=== PATIENT | female | born 1990 | race Caucasian/White ===

== ENCOUNTER 2017-09-30 17:51 | Emergency (ER) | payer OTHER, MEDICAID ==
[~2017-09-30] VITALS: Ht 160 cm; Wt 65.9 kg
[2017-09-30] MEDS ORDERED: FAMO20TA44 PO (18:14)
[2017-09-30] MEDS ORDERED: SUCR1ORA2 PO (18:14)
[2017-09-30] MEDS ORDERED: ONDA4TAB9 SL (18:14)
[2017-09-30 18:24] LABS: BASOPHILS % (AUTO) 0.4 % (0-1); EOSINOPHILS # (AUTO) 0.1 X10'3 (0-0.9); EOSINOPHILS % (AUTO) 1.5 % (0-6); HEMOGLOBIN 13.4 g/dl (12.0-16.0); LYMPHOCYTES # (AUTO) 2.5 X10'3 (1.1-4.8); LYMPHOCYTES % (AUTO) 41.1 % (21-51); MEAN CORPUSCULAR HEMOGLOBIN 31.2 PG (27.0-31.0); MEAN CORPUSCULAR HGB CONC 35.2 % (33.0-36.5); MEAN CORPUSCULAR VOLUME 88.7 FL (78-98); MEAN PLATELET VOLUME 6.9 FL (7.4-10.4); MONOCYTES # (AUTO) 0.6 X10'3 (0-0.9); MONOCYTES % (AUTO) 9.5 % (2-12); NEUTROPHILS # (AUTO) 2.9 X10'3 (1.8-7.7); NEUTROPHILS % (AUTO) 47.5 % (42-75); PLATELET COUNT 227 X10'3 (140-440); RED BLOOD COUNT 4.29 X10'6 (4.20-5.60); RED CELL DISTRIBUTION WIDTH 12.9 % (11.5-14.5); WHITE BLOOD COUNT 6.2 X10'3 (4.5-11.0)
[2017-09-30] MEDS ORDERED: ondansetron/PF 4mg/2ml inj IV ONE (18:25)
[2017-09-30] MEDS ORDERED: nitroGLYCERIN 0.4mg SUBLingual tab SL PRN (18:25)
[2017-09-30] MEDS ORDERED: MORPHINE 2MG in 2ml NS syringe IV PRN (18:25)
[2017-09-30 18:36] LABS: PARTIAL THROMBOPLASTIN TIME 28 SECONDS (22-32); PROTHROMBIN TIME 10.2 SECONDS (9.0-12.0)
[2017-09-30 18:44] LABS: ALANINE AMINOTRANSFERASE 25 U/L (12-78); ALBUMIN 3.6 G/DL (3.4-5.0); ALBUMIN/GLOBULIN RATIO 1.1 (1.1-1.5); ALKALINE PHOSPHATASE 66 IU/L (46-116); ANION GAP 10 (8-16); ASPARTATE AMINO TRANSFERASE 12 U/L (10-37); BILIRUBIN,TOTAL 0.3 MG/DL (0.1-1.0); BLOOD UREA NITROGEN 16 MG/DL (7-18); BUN/CREATININE RATIO 19.8 (6.6-38.0); CALCIUM 8.6 MG/DL (8.5-10.1); CHLORIDE 107 MMOL/L (99-107); CREATININE 0.81 MG/DL (0.40-0.90); GLUCOSE 114 MG/DL (70-104); POTASSIUM 3.6 MMOL/L (3.5-5.1); SODIUM 142 MMOL/L (135-145); TOTAL CARBON DIOXIDE 24.8 MMOL/L (24-32); eGFR 84 ML/MIN
[2017-09-30 19:25] LABS: D-DIMER 0.22 MG/L FEU (0-0.50)
[2017-09-30] MEDS ORDERED: LIDOcaine Viscous 15ml cup MM PRN (20:30)
[2017-09-30] MEDS ORDERED: sucralfate 1gm/10ml UD suspension PO ONE (20:30)
[2017-09-30] MEDS ORDERED: mag hydrox/Alum hydrox/simeth 30ml oral suspension PO ONE (20:30)
[2017-09-30 20:52] VITALS: BP 109/70
[2017-09-30] MEDS ORDERED: acetaminophen 325mg tablet PO ONE (21:55)
== END 2017-09-30 22:23 | disposition home or self-care (01) ==
LOC: ER 17:51
DX: R07.9 Chest pain, unspecified (principal); F41.9 Anxiety disorder, unspecified; F32.9 Major depressive disorder, single episode, unspecified; Z91.040 Latex allergy status
CPT/HCPCS: 36415; 71046; 80053; 84484; 85025; 85379; 85610; 85730; 93005; 96374; 96375; 99285; J2274; J2405

== ENCOUNTER 2018-01-30 19:39 | Emergency (ER) | payer MEDICAID, OTHER ==
[~2018-01-30] VITALS: Ht 147.3 cm; Wt 68.2 kg
[2018-01-30 20:43] LABS: CLARITY,URINE CLEAR (Clear); COLOR,URINE YELLOW (Yellow); GLUCOSE, URINE NEGATIVE (Neg); KETONES,URINE NEGATIVE (Neg); LEUKOCYTE ESTERASE ,URINE NEGATIVE (Neg); NITRITES, URINE NEGATIVE (Neg); OCCULT BLOOD,URINE NEGATIVE (Neg); PROTEIN,URINE NEGATIVE (Neg)
[2018-01-30 20:44] LABS: UA COLLECTION TYPE CLN CATCH MIDSTREAM; URINE HCG NEGATIVE (NEG)
[2018-01-30 20:49] LABS: BASOPHILS % (AUTO) 0.3 % (0-1); EOSINOPHILS # (AUTO) 0.1 X10'3 (0-0.9); EOSINOPHILS % (AUTO) 1.1 % (0-6); HEMATOCRIT 38.3 % (35.0-45.0); HEMOGLOBIN 13.2 g/dl (12.0-16.0); LYMPHOCYTES # (AUTO) 2.8 X10'3 (1.1-4.8); LYMPHOCYTES % (AUTO) 36.4 % (21-51); MEAN CORPUSCULAR HEMOGLOBIN 30.6 PG (27.0-31.0); MEAN CORPUSCULAR HGB CONC 34.5 % (33.0-36.5); MEAN CORPUSCULAR VOLUME 88.6 FL (78-98); MEAN PLATELET VOLUME 7.2 FL (7.4-10.4); MONOCYTES # (AUTO) 0.6 X10'3 (0-0.9); MONOCYTES % (AUTO) 7.5 % (2-12); NEUTROPHILS # (AUTO) 4.1 X10'3 (1.8-7.7); NEUTROPHILS % (AUTO) 54.7 % (42-75); PLATELET COUNT 229 X10'3 (140-440); RED BLOOD COUNT 4.32 X10'6 (4.20-5.60); RED CELL DISTRIBUTION WIDTH 12.7 % (11.5-14.5); WHITE BLOOD COUNT 7.6 X10'3 (4.5-11.0)
[2018-01-30 21:00] LABS: PROTHROMBIN TIME 10.6 SECONDS (9.0-12.0)
[2018-01-30 21:05] LABS: ALANINE AMINOTRANSFERASE 28 U/L (12-78); ALBUMIN 3.7 G/DL (3.4-5.0); ALBUMIN/GLOBULIN RATIO 1.1 (1.1-1.5); ALKALINE PHOSPHATASE 71 IU/L (46-116); ANION GAP 9 (8-16); ASPARTATE AMINO TRANSFERASE 11 U/L (10-37); BILIRUBIN,TOTAL 0.3 MG/DL (0.1-1.0); BLOOD UREA NITROGEN 12 MG/DL (7-18); BUN/CREATININE RATIO 12.2 (6.6-38.0); CALCIUM 8.8 MG/DL (8.5-10.1); CHLORIDE 105 MMOL/L (99-107); CREATININE 0.98 MG/DL (0.40-0.90); GLUCOSE 104 MG/DL (70-104); POTASSIUM 3.6 MMOL/L (3.5-5.1); SODIUM 138 MMOL/L (135-145); TOTAL CARBON DIOXIDE 24.2 MMOL/L (24-32); TOTAL PROTEIN 7.1 G/DL (6.4-8.2); eGFR 68 ML/MIN
[2018-01-30] MEDS ORDERED: fluconazole 150mg tablet PO ONE (21:25)
[2018-01-30] MEDS ORDERED: FLUC200T PO (21:56)
[2018-01-30 22:33] VITALS: BP 133/84
== END 2018-01-30 22:36 | disposition home or self-care (01) ==
LOC: ER 19:42
DX: N89.8 Other specified noninflammatory disorders of vagina (principal); R10.30 Lower abdominal pain, unspecified; Z88.8 Allergy status to other drugs, medicaments and biological substances; Z91.040 Latex allergy status
CPT/HCPCS: 36415; 80053; 81003; 81025; 85025; 85610; 87210; 99284

== ENCOUNTER 2018-08-07 14:16 | Emergency (ER) | payer OTHER, MEDICAID ==
[~2018-08-07] VITALS: Ht 147.3 cm; Wt 80.4 kg
[~2018-08-07 14:16] MED LIST: FLUC200T PO
[2018-08-07 14:33] VITALS: BP 108/71
[2018-08-07] MEDS ORDERED: ketorolac trometh. 30mg/ml inj. IM ONE (15:05)
[2018-08-07] MEDS ORDERED: cyclobenzaprine 10mg tablet PO ONE (15:05)
[2018-08-07] MEDS ORDERED: CYCL-1 PO (15:34)
== END 2018-08-07 15:56 | disposition home or self-care (01) ==
LOC: ER 14:17
DX: S16.1XXA Strain of muscle, fascia and tendon at neck level, initial encounter (principal); M54.6 Pain in thoracic spine; Z88.8 Allergy status to other drugs, medicaments and biological substances; Z91.040 Latex allergy status; Z79.899 Other long term (current) drug therapy; V43.62XA Car passenger injured in collision with other type car in traffic accident, initial encounter; Y93.89 Activity, other specified; Y92.488 Other paved roadways as the place of occurrence of the external cause; Y99.8 Other external cause status
CPT/HCPCS: 72040; 96372; 99283; J1885

== ENCOUNTER 2018-08-15 15:45 | Emergency (ER) | payer OTHER, MEDICAID ==
[~2018-08-15] VITALS: Ht 147.3 cm; Wt 70.0 kg
[~2018-08-15 15:45] MED LIST changes: +CYCL-1 PO
[2018-08-15 15:58] VITALS: BP 122/71
[2018-08-15] MEDS ORDERED: LIDOcaine 5% patch TP STA (17:39)
== END 2018-08-15 17:57 | disposition home or self-care (01) ==
LOC: ER 15:46
DX: S16.1XXA Strain of muscle, fascia and tendon at neck level, initial encounter (principal); Z88.8 Allergy status to other drugs, medicaments and biological substances; Z91.040 Latex allergy status; X58.XXXA Exposure to other specified factors, initial encounter; Y93.89 Activity, other specified; Y92.89 Other specified places as the place of occurrence of the external cause; Y99.8 Other external cause status
CPT/HCPCS: 99282

== ENCOUNTER 2018-09-06 13:03 | Emergency (ER) | payer MEDICAID, OTHER ==
[~2018-09-06] VITALS: Ht 147.3 cm; Wt 70.5 kg
[2018-09-06 13:10] VITALS: BP 114/82
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
== END 2018-09-06 14:31 | disposition home or self-care (01) ==
LOC: ER 13:04
DX: S16.1XXA Strain of muscle, fascia and tendon at neck level, initial encounter (principal); M25.511 Pain in right shoulder; M54.9 Dorsalgia, unspecified; Z88.8 Allergy status to other drugs, medicaments and biological substances; Z91.040 Latex allergy status; V89.2XXA Person injured in unspecified motor-vehicle accident, traffic, initial encounter; Y93.89 Activity, other specified; Y92.488 Other paved roadways as the place of occurrence of the external cause; Y99.8 Other external cause status
CPT/HCPCS: 73000; 99283

== ENCOUNTER 2018-12-29 01:28 | Emergency (ER) | payer MEDICAID ==
[~2018-12-29] VITALS: Ht 147.3 cm; Wt 72.7 kg
[2018-12-29] MEDS ORDERED: HYDROcodone/acetaminophen 10/325mg tab PO ONE (02:55)
[2018-12-29] MEDS ORDERED: triamcinolone acetonide 40mg/ml inj IM ONE (02:55)
[2018-12-29] MEDS ORDERED: ketorolac trometh inj. 60 MG/2 ML VIAL IM ONE (02:55)
[2018-12-29] MEDS ORDERED: cyclobenzaprine 10mg tablet PO ONE (02:55)
[2018-12-29 03:05] VITALS: BP 100/48
[2018-12-29] MEDS ORDERED: CYCL-1 PO (03:25)
[2018-12-29] MEDS ORDERED: NAPR-56 PO (03:25)
[2018-12-29] MEDS ORDERED: HYDR-4383 PO (03:25)
== END 2018-12-29 03:33 | disposition home or self-care (01) ==
LOC: ER 01:28
DX: M54.5 Low back pain (principal); G89.29 Other chronic pain; F41.9 Anxiety disorder, unspecified; F32.9 Major depressive disorder, single episode, unspecified; F10.99 Alcohol use, unspecified with unspecified alcohol-induced disorder; Z88.8 Allergy status to other drugs, medicaments and biological substances; Z91.040 Latex allergy status; Z79.899 Other long term (current) drug therapy; Y90.9 Presence of alcohol in blood, level not specified
CPT/HCPCS: 96372; 99283; J1885; J3301

== ENCOUNTER 2019-01-03 14:26 | Emergency (ER) | payer MEDICAID ==
[~2019-01-03] VITALS: Ht 147.3 cm; Wt 75.0 kg
[~2019-01-03 14:26] MED LIST changes: +HYDR-4383 PO; +NAPR-56 PO
[2019-01-03] MEDS ORDERED: CELE-193 PO (14:51)
[2019-01-03] MEDS ORDERED: LIDOcaine 5% patch TP ONE (15:30)
[2019-01-03] MEDS ORDERED: LIDO700A32 TOP (15:30)
[2019-01-03 15:31] VITALS: BP 107/63
== END 2019-01-03 15:56 | disposition home or self-care (01) ==
LOC: ER 14:27
DX: S39.012A Strain of muscle, fascia and tendon of lower back, initial encounter (principal); M54.31 Sciatica, right side; G89.29 Other chronic pain; F32.9 Major depressive disorder, single episode, unspecified; F41.9 Anxiety disorder, unspecified; Z79.899 Other long term (current) drug therapy; Z88.8 Allergy status to other drugs, medicaments and biological substances; Z91.040 Latex allergy status; X58.XXXA Exposure to other specified factors, initial encounter; Y93.39 Activity, other involving climbing, rappelling and jumping off; Y92.89 Other specified places as the place of occurrence of the external cause; Y99.8 Other external cause status
CPT/HCPCS: 99284

== ENCOUNTER 2019-04-24 10:26 | Emergency (ER) | payer MEDICAID ==
[~2019-04-24] VITALS: Ht 147.3 cm; Wt 79.0 kg
[~2019-04-24 10:26] MED LIST changes: +CELE-193 PO; -FLUC200T PO; +LIDO700A32 TOP; -NAPR-56 PO
--- NOTE | 2019-04-24 11:03 | NUR ---
severo: [phone]
[2019-04-24 11:55] VITALS: BP 121/83
[2019-04-24] MEDS ORDERED: dexamethasone sod phosphate 10mg/ml inj PO STA (12:06)
[2019-04-24] MEDS ORDERED: ipratropium/albuterol 3ml nebule NEB ONE (12:10)
[2019-04-24] MEDS ORDERED: ALBU8.5H8 IH (13:04)
[2019-04-24] MEDS ORDERED: BENZ-16 PO (13:04)
== END 2019-04-24 13:28 | disposition home or self-care (01) ==
LOC: ER 10:27
DX: J02.9 Acute pharyngitis, unspecified (principal); M54.5 Low back pain; G89.29 Other chronic pain; R06.02 Shortness of breath; Z88.8 Allergy status to other drugs, medicaments and biological substances; Z91.040 Latex allergy status; Z79.899 Other long term (current) drug therapy
CPT/HCPCS: 71046; 94640; 94760; 99283; J1100

== ENCOUNTER 2019-08-25 06:44 | Emergency (ER) | payer MEDICAID ==
[~2019-08-25] VITALS: Ht 147.3 cm; Wt 77.3 kg
[~2019-08-25 06:44] MED LIST changes: +ALBU8.5H8 IH
[2019-08-25] MEDS ORDERED: normal saline 1000ML IV soln IVB ONE (07:20)
[2019-08-25] MEDS ORDERED: ondansetron/PF 4mg/2ml inj IV ONE (07:20)
[2019-08-25] MEDS ORDERED: morphine 4 MG/ML inj SYRINge IV PRN (07:20)
[2019-08-25] MEDS ORDERED: ketorolac tromethamine 15mg/ml inj. IV ONE (07:20)
[2019-08-25 07:47] LABS: BASOPHILS % (AUTO) 0.2 % (0-1); EOSINOPHILS # (AUTO) 0.1 X10'3 (0-0.9); EOSINOPHILS % (AUTO) 1.7 % (0-6); HEMATOCRIT 39.4 % (35.0-45.0); HEMOGLOBIN 13.5 g/dl (12.0-16.0); LYMPHOCYTES % (AUTO) 37.7 % (21-51); MEAN CORPUSCULAR HEMOGLOBIN 30.5 PG (27.0-31.0); MEAN CORPUSCULAR HGB CONC 34.3 g/dL (33.0-36.5); MEAN PLATELET VOLUME 6.9 FL (7.4-10.4); MONOCYTES # (AUTO) 0.8 X10'3 (0-0.9); MONOCYTES % (AUTO) 10.6 % (2-12); NEUTROPHILS # (AUTO) 3.9 X10'3 (1.8-7.7); NEUTROPHILS % (AUTO) 49.8 % (42-75); PLATELET COUNT 231 X10'3 (140-440); RED BLOOD COUNT 4.42 X10'6 (4.20-5.60); RED CELL DISTRIBUTION WIDTH 13.1 % (11.5-14.5); WHITE BLOOD COUNT 7.9 X10'3 (4.5-11.0)
[2019-08-25 07:47] LABS: CLARITY,URINE CLEAR (Clear); COLOR,URINE YELLOW (Yellow); GLUCOSE, URINE NEGATIVE (Neg); KETONES,URINE NEGATIVE (Neg); LEUKOCYTE ESTERASE ,URINE NEGATIVE (Neg); NITRITES, URINE NEGATIVE (Neg); OCCULT BLOOD,URINE NEGATIVE (Neg); PH,URINE 6.5 (4.8-8.0); PROTEIN,URINE NEGATIVE (Neg); UROBILINOGEN,URINE 0.2 E.U/dL (0.2-1.0)
[2019-08-25 07:49] LABS: HCG SERUM QL NEGATIVE
[2019-08-25 07:51] LABS: UA COLLECTION TYPE STRAIGHT CATH
[2019-08-25 07:53] LABS: ALANINE AMINOTRANSFERASE 25 U/L (12-78); ALBUMIN 3.3 G/DL (3.4-5.0); ALKALINE PHOSPHATASE 63 IU/L (46-116); ANION GAP 9 (8-16); ASPARTATE AMINO TRANSFERASE 17 U/L (10-37); BILIRUBIN,TOTAL 0.4 MG/DL (0.1-1.0); BLOOD UREA NITROGEN 10 MG/DL (7-18); BUN/CREATININE RATIO 12.5 (6.6-38.0); CALCIUM 8.2 MG/DL (8.5-10.1); CHLORIDE 109 MMOL/L (99-107); GLUCOSE 91 MG/DL (70-104); LIPASE 134 U/L (73-393); POTASSIUM 3.7 MMOL/L (3.5-5.1); SODIUM 143 MMOL/L (135-145); TOTAL PROTEIN 6.7 G/DL (6.4-8.2); eGFR 84 ML/MIN
[2019-08-25] MEDS ORDERED: HYDROcodone/acetaminophen 10/325mg tab PO ONE (08:10)
[2019-08-25] MEDS ORDERED: HYDR-4353 PO (08:14)
[2019-08-25] MEDS ORDERED: ONDA4TAB6 PO (08:19)
[2019-08-25 08:29] VITALS: BP 119/68
== END 2019-08-25 08:36 | disposition home or self-care (01) ==
LOC: ER 06:45
DX: N83.201 Unspecified ovarian cyst, right side (principal); G89.29 Other chronic pain; Z90.49 Acquired absence of other specified parts of digestive tract; Z88.8 Allergy status to other drugs, medicaments and biological substances; Z91.040 Latex allergy status; Z79.899 Other long term (current) drug therapy
CPT/HCPCS: 36415; 76830; 76856; 80053; 81003; 83690; 84703; 85025; 96374; 96375; 99285; J1885; J2405; J7030

== ENCOUNTER 2019-08-27 21:11 | Emergency (ER) | payer MEDICAID ==
[~2019-08-27] VITALS: Ht 147.3 cm; Wt 80.5 kg
[~2019-08-27 21:11] MED LIST changes: +HYDR-4353 PO; +ONDA4TAB6 PO
[2019-08-27] MEDS ORDERED: ondansetron/PF 4mg/2ml inj IV ONE (21:40)
[2019-08-27] MEDS ORDERED: normal saline 1000ML IV soln IVB ONE (21:40)
[2019-08-27] MEDS ORDERED: ketorolac trometh. 30mg/ml inj. IV ONE (21:40)
[2019-08-27 22:09] LABS: BASOPHILS # (AUTO) 0.1 X10'3 (0-0.2); EOSINOPHILS # (AUTO) 0.1 X10'3 (0-0.9); EOSINOPHILS % (AUTO) 1.5 % (0-6); HEMATOCRIT 41.5 % (35.0-45.0); HEMOGLOBIN 14.4 g/dl (12.0-16.0); LYMPHOCYTES # (AUTO) 2.4 X10'3 (1.1-4.8); LYMPHOCYTES % (AUTO) 34.6 % (21-51); MEAN CORPUSCULAR HGB CONC 34.8 g/dL (33.0-36.5); MEAN CORPUSCULAR VOLUME 88.9 FL (78-98); MEAN PLATELET VOLUME 6.7 FL (7.4-10.4); MONOCYTES # (AUTO) 0.8 X10'3 (0-0.9); NEUTROPHILS # (AUTO) 3.6 X10'3 (1.8-7.7); NEUTROPHILS % (AUTO) 51.9 % (42-75); PLATELET COUNT 270 X10'3 (140-440); RED BLOOD COUNT 4.66 X10'6 (4.20-5.60); RED CELL DISTRIBUTION WIDTH 12.8 % (11.5-14.5)
[2019-08-27 22:12] LABS: URINE HCG NEGATIVE (NEG)
[2019-08-27 22:14] LABS: CLARITY,URINE CLEAR (Clear); COLOR,URINE YELLOW (Yellow); GLUCOSE, URINE NEGATIVE (Neg); KETONES,URINE NEGATIVE (Neg); LEUKOCYTE ESTERASE ,URINE NEGATIVE (Neg); NITRITES, URINE NEGATIVE (Neg); OCCULT BLOOD,URINE NEGATIVE (Neg); PROTEIN,URINE NEGATIVE (Neg); UROBILINOGEN,URINE 0.2 E.U/dL (0.2-1.0)
[2019-08-27 22:19] LABS: UA COLLECTION TYPE CLN CATCH MIDSTREAM
[2019-08-27 22:23] LABS: ALANINE AMINOTRANSFERASE 45 U/L (12-78); ALBUMIN 4.1 G/DL (3.4-5.0); ALBUMIN/GLOBULIN RATIO 1.1 (1.1-1.5); ALKALINE PHOSPHATASE 75 IU/L (46-116); ANION GAP 9 (8-16); ASPARTATE AMINO TRANSFERASE 25 U/L (10-37); BILIRUBIN,TOTAL 0.3 MG/DL (0.1-1.0); BLOOD UREA NITROGEN 11 MG/DL (7-18); BUN/CREATININE RATIO 14.5 (6.6-38.0); CHLORIDE 104 MMOL/L (99-107); CREATININE 0.76 MG/DL (0.40-0.90); GLUCOSE 87 MG/DL (70-104); POTASSIUM 3.4 MMOL/L (3.5-5.1); SODIUM 142 MMOL/L (135-145); TOTAL CARBON DIOXIDE 28.8 MMOL/L (24-32); eGFR 89 ML/MIN
[2019-08-27] MEDS ORDERED: oxyCODONE/APAP 10/325mg tablet PO ONE (22:25)
[2019-08-27] MEDS ORDERED: PROC-8 PO (23:18)
[2019-08-27] MEDS ORDERED: NAPR-56 PO (23:18)
[2019-08-27 23:20] VITALS: BP 117/81
--- NOTE | 2019-08-27 23:23 | NUR ---
LU SUN TALKING WITH PT ABOUT DISCHARGE.
== END 2019-08-27 23:26 | disposition home or self-care (01) ==
LOC: ER 21:11
DX: R11.2 Nausea with vomiting, unspecified (principal); R10.11 Right upper quadrant pain; R10.2 Pelvic and perineal pain; G89.29 Other chronic pain; F41.9 Anxiety disorder, unspecified; F32.9 Major depressive disorder, single episode, unspecified; Z90.49 Acquired absence of other specified parts of digestive tract; Z91.040 Latex allergy status; Z88.8 Allergy status to other drugs, medicaments and biological substances; Z79.2 Long term (current) use of antibiotics; Z79.899 Other long term (current) drug therapy
CPT/HCPCS: 36415; 74176; 80053; 81003; 81025; 85025; 96361; 96374; 99284; J2405; J7030

== ENCOUNTER 2019-10-26 03:56 | Inpatient (IN) | payer MEDICAID ==
[~2019-10-26] VITALS: Ht 147.3 cm; Wt 77.3 kg
[2019-10-26] VITALS (9 sets, daily range): BP systolic 97–119; BP diastolic 57–75
[~2019-10-26 03:56] MED LIST changes: -HYDR-4353 PO; +PROC-8 PO
[2019-10-26] MEDS ORDERED: normal saline 1000ML IV soln IVB ONE ×2 (04:30)
[2019-10-26] MEDS ORDERED: pantoprazole 40 MG vial IV ONE (04:30)
[2019-10-26] MEDS ORDERED: ondansetron/PF 4mg/2ml inj IV ONE (04:30)
[2019-10-26] MEDS ORDERED: LORazepam 2 mg/ml vial IV ONE (04:30)
[2019-10-26 04:50] LABS: ALANINE AMINOTRANSFERASE 30 U/L (12-78); ALBUMIN 4.1 G/DL (3.4-5.0); ALBUMIN/GLOBULIN RATIO 1.1 (1.1-1.5); ALKALINE PHOSPHATASE 79 IU/L (46-116); BILIRUBIN,TOTAL 0.4 MG/DL (0.1-1.0); CALCIUM 9.1 MG/DL (8.5-10.1); CHLORIDE 103 MMOL/L (99-107); GLUCOSE 80 MG/DL (70-104); LIPASE 156 U/L (73-393); TOTAL CARBON DIOXIDE 26.7 MMOL/L (24-32); eGFR 65 ML/MIN
[2019-10-26 05:03] LABS: EOSINOPHILS # (AUTO) 0.1 X10'3 (0-0.9); RED CELL DISTRIBUTION WIDTH 12.8 % (11.5-14.5)
[2019-10-26 05:04] LABS: ANION GAP 13 (8-16); POTASSIUM 4.1 MMOL/L (3.5-5.1); SODIUM 143 MMOL/L (135-145)
[2019-10-26 05:05] LABS: BASOPHILS % (AUTO) 0.1 % (0-1); EOSINOPHILS % (AUTO) 0.7 % (0-6); HEMATOCRIT 43.1 % (35.0-45.0); HEMOGLOBIN 14.5 g/dl (12.0-16.0); LYMPHOCYTES # (AUTO) 3.8 X10'3 (1.1-4.8); LYMPHOCYTES % (AUTO) 28.3 % (21-51); MEAN CORPUSCULAR HEMOGLOBIN 30.4 PG (27.0-31.0); MEAN CORPUSCULAR HGB CONC 33.6 g/dL (33.0-36.5); MEAN CORPUSCULAR VOLUME 90.3 FL (78-98); MEAN PLATELET VOLUME 7.3 FL (7.4-10.4); MONOCYTES # (AUTO) 1.1 X10'3 (0-0.9); MONOCYTES % (AUTO) 8.2 % (2-12); NEUTROPHILS # (AUTO) 8.5 X10'3 (1.8-7.7); NEUTROPHILS % (AUTO) 62.7 % (42-75); PLATELET COUNT 283 X10'3 (140-440); RED BLOOD COUNT 4.77 X10'6 (4.20-5.60); WHITE BLOOD COUNT 13.5 X10'3 (4.5-11.0)
[2019-10-26 05:07] LABS: ASPARTATE AMINO TRANSFERASE 19 U/L (10-37)
[2019-10-26 05:14] LABS: BLOOD UREA NITROGEN 17 MG/DL (7-18)
[2019-10-26 05:49] LABS: CLARITY,URINE CLEAR (Clear); COLOR,URINE YELLOW (Yellow); GLUCOSE, URINE NEGATIVE (Neg); KETONES,URINE NEGATIVE (Neg); LEUKOCYTE ESTERASE ,URINE NEGATIVE (Neg); NITRITES, URINE NEGATIVE (Neg); OCCULT BLOOD,URINE NEGATIVE (Neg); PROTEIN,URINE NEGATIVE (Neg); UROBILINOGEN,URINE 0.2 E.U/dL (0.2-1.0)
[2019-10-26 05:50] LABS: UA COLLECTION TYPE CLN CATCH MIDSTREAM
[2019-10-26 06:49] LABS: URINE HCG NEGATIVE (NEG)
[2019-10-26] MEDS ORDERED: iohexol 300mg/ml 100ml inj. ONE (07:09)
[2019-10-26] MEDS ORDERED: fentaNYL/PF 50MCG/1 ML 2ML syringe IV ONE (08:30)
[2019-10-26] MEDS ORDERED: morphine 2 MG/ML inj. syringe IV PRN ×2 (08:40→11:55)
[2019-10-26] MEDS ORDERED: magnesium hydroxide 30ml (MOM) UD suspension PO PRN (08:40)
[2019-10-26] MEDS ORDERED: acetaminophen 325mg tablet PO PRN ×2 (08:40)
[2019-10-26] MEDS ORDERED: metoclopramide 5 mg/ml inj IV PRN (08:40)
[2019-10-26] MEDS ORDERED: HYDROcodone/acetaminophen 10/325mg tab PO PRN (08:40)
[2019-10-26] MEDS: normal saline 1000ml 1,000 ML IV SCH ×2 (09:20→21:40)
[2019-10-26] MEDS ORDERED: ringers solution, lacted 1,000 ML IV SCH (11:52)
[2019-10-26] MEDS ORDERED: meperidine/PF 25mg/ml syringe IV PRN ×2 (11:55)
[2019-10-26] MEDS ORDERED: proCHLORperazine 10 MG/2 ml inj IV PRN (11:55)
[2019-10-26] MEDS ORDERED: morphine 4 MG/ML inj SYRINge IV PRN (11:55)
[2019-10-26] MEDS ORDERED: ondansetron/PF 4mg/2ml inj IV PRN (11:55)
[2019-10-26] MEDS ORDERED: midazolam 2 mg/2 ml injection ONE (12:02)
[2019-10-26] MEDS ORDERED: fentaNYL /PF 50mcg/ml 5ml ampule ONE (12:02)
[2019-10-26] MEDS ORDERED: neostigmine methylsulfate 1 MG/ML 10ml vial ONE (12:06)
[2019-10-26] MEDS ORDERED: rocuronium 10mg/ml inj IV ONE (12:06)
[2019-10-26] MEDS ORDERED: dexamethasone sod phosphate 4mg/ml inj. ONE (12:06)
[2019-10-26] MEDS ORDERED: propofol inj 20 ML IV ONE (12:06)
[2019-10-26] MEDS ORDERED: LIDOcaine 2% (20mg/ml) 5ml vial ONE (12:06)
[2019-10-26] MEDS ORDERED: glycopyrrolate 0.2mg/ml inj ONE (12:06)
[2019-10-26] MEDS ORDERED: ondansetron/PF 4mg/2ml inj ONE (12:06)
[2019-10-26] MEDS ORDERED: sevoflurane 250ml liquid IH ONE (12:11)
[2019-10-26] MEDS ORDERED: ceFOXitin 2 GM ADDVANTGE BAG 50 ML IV ONE (12:28)
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
[2019-10-26] MEDS: meperidine/PF 25mg/ml syringe IV PRN ×3 (14:28→14:34)
--- NOTE | 2019-10-26 14:45 | NUR ---
Report called to receiving nurse. Transferred via SURGICL BED TO ROOM 357B Belongings . Special Issues communicated to receiving nurse.
--- NOTE | 2019-10-26 14:45 | NUR ---
Patient in room [facility]. I have received report from Lora ALEXANDER in recovery and had the opportunity to ask questions and assume patient care. Pt was very sedated at arrival, checking her q15min.
[2019-10-26] MEDS ORDERED: NO HOME MEDS (16:56)
[2019-10-26] MEDS: morphine 2 MG/ML inj. syringe IV PRN ×2 (17:22→21:38)
--- NOTE | 2019-10-26 17:56 | NUR ---
no home meds - Valentina in pharmacy aware. Addendum: 10/26/19 at 4247 by Mary Cornejo RN Amended: Links added.
--- NOTE | 2019-10-26 18:27 | NUR ---
Problems reprioritized. Patient report given, questions answered & plan of care reviewed with Pat RN.
--- NOTE | 2019-10-26 19:45 | NUR ---
cedric babcock placed by CATHERINE Peraza Addendum: 10/27/19 at 0349 by Michelle Isabel RN Amended: Links added.
[2019-10-26] MEDS: calamine LOTION TP PRN (22:39)
[2019-10-27] VITALS: BP 119/75
[2019-10-27] MEDS: morphine 2 MG/ML inj. syringe IV PRN ×4 (02:39→21:12)
[2019-10-27 03:50] VITALS: BP 112/66
[2019-10-27 05:46] LABS: BASOPHILS % (AUTO) 0.1 % (0-1); EOSINOPHILS % (AUTO) 0 % (0-6); HEMATOCRIT 39.4 % (35.0-45.0); HEMOGLOBIN 13.1 g/dl (12.0-16.0); LYMPHOCYTES % (AUTO) 6.5 % (21-51); MEAN CORPUSCULAR HEMOGLOBIN 30.1 PG (27.0-31.0); MEAN CORPUSCULAR HGB CONC 33.4 g/dL (33.0-36.5); MEAN CORPUSCULAR VOLUME 90.1 FL (78-98); MONOCYTES % (AUTO) 6.9 % (2-12); NEUTROPHILS # (AUTO) 12.9 X10'3 (1.8-7.7); NEUTROPHILS % (AUTO) 86.5 % (42-75); PLATELET COUNT 238 X10'3 (140-440); RED BLOOD COUNT 4.37 X10'6 (4.20-5.60); RED CELL DISTRIBUTION WIDTH 12.6 % (11.5-14.5); WHITE BLOOD COUNT 14.9 X10'3 (4.5-11.0)
[2019-10-27 05:56] LABS: ANION GAP 7 (8-16); BLOOD UREA NITROGEN 10 MG/DL (7-18); BUN/CREATININE RATIO 11.5 (6.6-38.0); CALCIUM 8.4 MG/DL (8.5-10.1); CHLORIDE 106 MMOL/L (99-107); CREATININE 0.87 MG/DL (0.40-0.90); GLUCOSE 128 MG/DL (70-104); SODIUM 140 MMOL/L (135-145); TOTAL CARBON DIOXIDE 27.3 MMOL/L (24-32); eGFR 76 ML/MIN
--- NOTE | 2019-10-27 06:50 | NUR ---
Patient in room [facility] 357. I have received report from Pat RN and had the opportunity to ask questions and assume patient care.
[2019-10-27 07:00] VITALS: BP 110/65
[2019-10-27] MEDS: normal saline 1000ml 1,000 ML IV SCH ×2 (07:58→19:49)
[2019-10-27] MEDS: calamine LOTION TP PRN (08:09)
[2019-10-27 11:00] VITALS: BP 107/68
--- NOTE | 2019-10-27 18:15 | NUR ---
Patient in room [facility] 357. I have received report from Gisselle ALEXANDER and had the opportunity to ask questions and assume patient care.
--- NOTE | 2019-10-27 18:36 | NUR ---
Problems reprioritized. Patient report given, questions answered & plan of care reviewed with Evelyn ALEXANDER.
[2019-10-27 20:00] VITALS: BP 124/75
[2019-10-27] MEDS: ondansetron/PF 4mg/2ml inj IV PRN (23:16)
[2019-10-28] VITALS: BP 118/77
[2019-10-28] MEDS: normal saline 1000ml 1,000 ML IV SCH ×3 (00:37→17:10)
[2019-10-28] MEDS: morphine 2 MG/ML inj. syringe IV PRN ×2 (04:38→20:49)
[2019-10-28 05:09] LABS: BASOPHILS % (AUTO) 0.2 % (0-1); EOSINOPHILS # (AUTO) 0.1 X10'3 (0-0.9); HEMATOCRIT 38.7 % (35.0-45.0); HEMOGLOBIN 13.2 g/dl (12.0-16.0); LYMPHOCYTES # (AUTO) 3.4 X10'3 (1.1-4.8); LYMPHOCYTES % (AUTO) 27.4 % (21-51); MEAN CORPUSCULAR HEMOGLOBIN 30.5 PG (27.0-31.0); MEAN CORPUSCULAR VOLUME 89.8 FL (78-98); MEAN PLATELET VOLUME 6.9 FL (7.4-10.4); MONOCYTES # (AUTO) 1.3 X10'3 (0-0.9); MONOCYTES % (AUTO) 10.6 % (2-12); NEUTROPHILS # (AUTO) 7.6 X10'3 (1.8-7.7); NEUTROPHILS % (AUTO) 60.8 % (42-75); PLATELET COUNT 258 X10'3 (140-440); RED BLOOD COUNT 4.31 X10'6 (4.20-5.60); RED CELL DISTRIBUTION WIDTH 12.9 % (11.5-14.5); WHITE BLOOD COUNT 12.5 X10'3 (4.5-11.0)
[2019-10-28 05:21] LABS: ALBUMIN 3.2 G/DL (3.4-5.0); ANION GAP 10 (8-16); BLOOD UREA NITROGEN 8 MG/DL (7-18); CALCIUM 8.4 MG/DL (8.5-10.1); CHLORIDE 106 MMOL/L (99-107); CREATININE 0.89 MG/DL (0.40-0.90); GLUCOSE 85 MG/DL (70-104); POTASSIUM 3.7 MMOL/L (3.5-5.1); SODIUM 140 MMOL/L (135-145); eGFR 74 ML/MIN
--- NOTE | 2019-10-28 06:24 | NUR ---
Problems reprioritized. Patient report given, questions answered & plan of care reviewed with Sudha ALEXANDER.
[2019-10-28 07:00] VITALS: BP 113/69
--- NOTE | 2019-10-28 09:28 | NUR ---
Spoke to MD Espana regarding diet, PT, and F/C. wants F/c to be left in until tomorrow per protocol- retention.
[2019-10-28] MEDS: HYDROcodone/acetaminophen 5mg/325mg tablet PO PRN (11:34)
[2019-10-28 12:10] VITALS: BP 113/76
[2019-10-28] MEDS: ondansetron/PF 4mg/2ml inj IV PRN (13:26)
--- NOTE | 2019-10-28 13:39 | NUR ---
Patient refused a walk at this time due to "just not feeling good". Will attempt in a couple hours.
--- NOTE | 2019-10-28 14:32 | NUR ---
Pt. refused to walk stating "I just walked."
--- NOTE | 2019-10-28 14:37 | NUR ---
Pt. states history of Tourette's syndrome- therefore the eye twitch.
--- NOTE | 2019-10-28 18:00 | NUR ---
Patient in room [facility]. I have received report from Sudha ALEXANDER and had the opportunity to ask questions and assume patient care.
--- NOTE | 2019-10-28 18:12 | NUR ---
Gave report to Evelyn ALEXANDER. Pt. in room comfortable at this time.
[2019-10-28 20:00] VITALS: BP 119/79
[2019-10-28] MEDS: mag hydrox/Alum hydrox/simeth 30ml oral suspension PO PRN (22:43)
[2019-10-29] VITALS: BP 107/78
[2019-10-29] MEDS: normal saline 1000ml 1,000 ML IV SCH ×2 (03:39→13:50)
[2019-10-29] MEDS: morphine 2 MG/ML inj. syringe IV PRN (05:37)
--- NOTE | 2019-10-29 06:00 | NUR ---
Patient in room [facility]. I have received report from CATHERINE Rivas and had the opportunity to ask questions and assume patient care.
--- NOTE | 2019-10-29 06:06 | NUR ---
Problems reprioritized. Patient report given, questions answered & plan of care reviewed with Ashwini ALEXANDER.
[2019-10-29 06:59] LABS: BASOPHILS % (AUTO) 0.3 % (0-1); EOSINOPHILS # (AUTO) 0.2 X10'3 (0-0.9); HEMATOCRIT 36.6 % (35.0-45.0); HEMOGLOBIN 12.4 g/dl (12.0-16.0); LYMPHOCYTES # (AUTO) 1.9 X10'3 (1.1-4.8); LYMPHOCYTES % (AUTO) 24.6 % (21-51); MEAN CORPUSCULAR HEMOGLOBIN 30.7 PG (27.0-31.0); MEAN CORPUSCULAR HGB CONC 33.9 g/dL (33.0-36.5); MEAN CORPUSCULAR VOLUME 90.5 FL (78-98); MEAN PLATELET VOLUME 6.6 FL (7.4-10.4); MONOCYTES # (AUTO) 0.8 X10'3 (0-0.9); MONOCYTES % (AUTO) 9.8 % (2-12); NEUTROPHILS # (AUTO) 4.9 X10'3 (1.8-7.7); NEUTROPHILS % (AUTO) 62.3 % (42-75); PLATELET COUNT 204 X10'3 (140-440); RED BLOOD COUNT 4.04 X10'6 (4.20-5.60); RED CELL DISTRIBUTION WIDTH 12.8 % (11.5-14.5); WHITE BLOOD COUNT 7.9 X10'3 (4.5-11.0)
[2019-10-29 07:28] LABS: ALANINE AMINOTRANSFERASE 17 U/L (12-78); ALBUMIN 2.8 G/DL (3.4-5.0); ALBUMIN/GLOBULIN RATIO 0.8 (1.1-1.5); ALKALINE PHOSPHATASE 58 IU/L (46-116); ANION GAP 12 (8-16); ASPARTATE AMINO TRANSFERASE 13 U/L (10-37); BILIRUBIN,TOTAL 0.6 MG/DL (0.1-1.0); BLOOD UREA NITROGEN 10 MG/DL (7-18); BUN/CREATININE RATIO 13.3 (6.6-38.0); CHLORIDE 107 MMOL/L (99-107); CREATININE 0.75 MG/DL (0.40-0.90); GLUCOSE 69 MG/DL (70-104); PHOSPHORUS 3.9 MG/DL (2.3-4.5); POTASSIUM 3.7 MMOL/L (3.5-5.1); SODIUM 141 MMOL/L (135-145); TOTAL CARBON DIOXIDE 22.1 MMOL/L (24-32); TOTAL PROTEIN 6.3 G/DL (6.4-8.2); eGFR > 90 ML/MIN
[2019-10-29 08:00] VITALS: BP 120/76
[2019-10-29 11:00] VITALS: BP 116/71
[2019-10-29] MEDS: HYDROcodone/acetaminophen 5mg/325mg tablet PO PRN ×2 (13:49→20:35)
--- NOTE | 2019-10-29 14:29 | NUR ---
Patients BS 64 with no glucose ordered, and pt is NPO. Dr. Duke paged with no response. Dr. Espana called and he stated that its okay to give patient 2 juices for hypoglycemia and to keep pt NPO after.
--- NOTE | 2019-10-29 17:28 | NUR ---
Pages sent to hospitalist to request Accuchecks and Hypoglycemic protocol, prn per RN, and return calls pending. Dr. Smith was notified and orders received.
--- NOTE | 2019-10-29 18:00 | NUR ---
Problems reprioritized. Patient report given, questions answered & plan of care reviewed with CATHERINE Harris.
--- NOTE | 2019-10-29 18:30 | NUR ---
Patient in room [facility]. I have received report from CATHERINE Maradiaga and had the opportunity to ask questions and assume patient care with CATHERINE Robles. Addendum: 10/29/19 at 1940 by Immanuel An RN Amended: Links added.
--- NOTE | 2019-10-29 18:44 | NUR ---
Patient in room [facility]. I have received report from Gage ALEXANEDR and had the opportunity to ask questions and assume patient care.
[2019-10-29 20:00] VITALS: BP 121/79
[2019-10-29] MEDS: mag hydrox/Alum hydrox/simeth 30ml oral suspension PO PRN (23:03)
[2019-10-30] VITALS: BP 142/73
[2019-10-30] MEDS: normal saline 1000ml 1,000 ML IV SCH ×2 (00:46→10:46)
[2019-10-30] MEDS: HYDROcodone/acetaminophen 5mg/325mg tablet PO PRN (04:03)
[2019-10-30 05:50] LABS: BASOPHILS % (AUTO) 0.2 % (0-1); EOSINOPHILS # (AUTO) 0.2 X10'3 (0-0.9); EOSINOPHILS % (AUTO) 2.3 % (0-6); HEMOGLOBIN 12.7 g/dl (12.0-16.0); LYMPHOCYTES # (AUTO) 1.7 X10'3 (1.1-4.8); LYMPHOCYTES % (AUTO) 22.1 % (21-51); MEAN CORPUSCULAR HEMOGLOBIN 31.2 PG (27.0-31.0); MEAN CORPUSCULAR HGB CONC 34.4 g/dL (33.0-36.5); MEAN CORPUSCULAR VOLUME 90.6 FL (78-98); MEAN PLATELET VOLUME 6.7 FL (7.4-10.4); MONOCYTES # (AUTO) 0.7 X10'3 (0-0.9); MONOCYTES % (AUTO) 9.4 % (2-12); NEUTROPHILS # (AUTO) 5.2 X10'3 (1.8-7.7); PLATELET COUNT 218 X10'3 (140-440); RED BLOOD COUNT 4.08 X10'6 (4.20-5.60); RED CELL DISTRIBUTION WIDTH 12.7 % (11.5-14.5); WHITE BLOOD COUNT 7.9 X10'3 (4.5-11.0)
[2019-10-30 06:02] LABS: ANION GAP 11 (8-16); BLOOD UREA NITROGEN 9 MG/DL (7-18); BUN/CREATININE RATIO 12.7 (6.6-38.0); CALCIUM 8.5 MG/DL (8.5-10.1); CHLORIDE 105 MMOL/L (99-107); CREATININE 0.71 MG/DL (0.40-0.90); GLUCOSE 68 MG/DL (70-104); POTASSIUM 3.6 MMOL/L (3.5-5.1); SODIUM 138 MMOL/L (135-145); TOTAL CARBON DIOXIDE 22.1 MMOL/L (24-32); eGFR > 90 ML/MIN
--- NOTE | 2019-10-30 06:30 | NUR ---
Patient in room [facility]. I have received report from Margaret ALEXANDER and had the opportunity to ask questions and assume patient care.
--- NOTE | 2019-10-30 06:33 | NUR ---
Problems reprioritized. Patient report given, questions answered & plan of care reviewed with Xi ALEXANDER.
--- NOTE | 2019-10-30 06:33 | NUR ---
Agree with nursing assessment
[2019-10-30 07:00] VITALS: BP 109/66
--- NOTE | 2019-10-30 08:16 | NUR ---
Called Dr. Espana regarding patient blood sugar of 65mg/dl and that patient has been passing gas as she reported this am. Received order to start patient on regular diet. Breakfast ordered for patient
[2019-10-30 11:00] VITALS: BP 103/60
[2019-10-30] MEDS ORDERED: FAMO20TA8 PO (13:16)
[2019-10-30] MEDS ORDERED: IBUP-1985 PO (13:16)
[2019-10-30] MEDS ORDERED: ACET-1008 PO (13:16)
--- NOTE | 2019-10-30 14:35 | NUR ---
Discharge instructions given to patient, patient verbalized understanding of all instructions made. Peripheral IV catheter removed, tip intact. New prescriptions called in to [facility] but I was told by the staff that they are over the counter. Instructed patient to ensure she has all her belongings with her before leaving the hospital. Surgical wound dressing change, no signs of infection noted.
== END 2019-10-30 16:25 | disposition home or self-care (01) | DRG 224 ==
LOC: ER 03:56 → ED HOLD 08:37 → SUR 3N 10:55
PROVIDERS: ADMIT Internal Medicine; ATTEND Internal Medicine
PROC: 0D9670Z Drainage of Stomach with Drainage Device, Via Natural or Artificial Opening (ICD-10-PCS; 2019-10-26)
PROC: BW211ZZ Computerized Tomography (CT Scan) of Abdomen and Pelvis using Low Osmolar Contrast (ICD-10-PCS; 2019-10-26)
PROC: 0DNW0ZZ Release Peritoneum, Open Approach (ICD-10-PCS; principal; 2019-10-26 12:11)
DX: K56.50 Intestinal adhesions [bands], unspecified as to partial versus complete obstruction (principal); F32.9 Major depressive disorder, single episode, unspecified; F41.9 Anxiety disorder, unspecified; G89.29 Other chronic pain; M54.9 Dorsalgia, unspecified; Z90.49 Acquired absence of other specified parts of digestive tract; Z88.8 Allergy status to other drugs, medicaments and biological substances; Z91.040 Latex allergy status; K56.7 Ileus, unspecified
CPT/HCPCS: 36415; 74177; 80048; 80053; 81003; 81025; 82948; 83605; 83690; 84100; 85025; 87081; 96361; 96374; 96375; 99285; A4618; A7000; C1758; C9113; G0378; J0694; J1100; J2001; J2060; J2175; J2250; J2270; J2405; J2704; J2710; J3010; J3490; J7030; J7120; Q9967

== ENCOUNTER 2019-11-06 22:38 | Emergency (ER) | payer MEDICAID ==
[~2019-11-06] VITALS: Ht 147.3 cm; Wt 72.7 kg
[~2019-11-06 22:38] MED LIST changes: +ACET-1008 PO; -ALBU8.5H8 IH; -CELE-193 PO; -CYCL-1 PO; +FAMO20TA8 PO; -HYDR-4383 PO; +IBUP-1985 PO; -LIDO700A32 TOP; -ONDA4TAB6 PO; -PROC-8 PO
[2019-11-06] MEDS ORDERED: ondansetron/PF 4mg/2ml inj IV ONE (22:55)
[2019-11-06] MEDS ORDERED: morphine 4 MG/ML inj SYRINge IV ONE (22:55)
[2019-11-06 23:30] LABS: BASOPHILS % (AUTO) 0.3 % (0-1); EOSINOPHILS # (AUTO) 0.1 X10'3 (0-0.9); EOSINOPHILS % (AUTO) 1.4 % (0-6); HEMATOCRIT 40.2 % (35.0-45.0); HEMOGLOBIN 13.7 g/dl (12.0-16.0); LYMPHOCYTES # (AUTO) 2.7 X10'3 (1.1-4.8); LYMPHOCYTES % (AUTO) 29.2 % (21-51); MEAN CORPUSCULAR HEMOGLOBIN 30.7 PG (27.0-31.0); MEAN CORPUSCULAR HGB CONC 34.2 g/dL (33.0-36.5); MEAN CORPUSCULAR VOLUME 89.7 FL (78-98); MEAN PLATELET VOLUME 7.1 FL (7.4-10.4); MONOCYTES # (AUTO) 0.9 X10'3 (0-0.9); MONOCYTES % (AUTO) 9.6 % (2-12); NEUTROPHILS # (AUTO) 5.5 X10'3 (1.8-7.7); NEUTROPHILS % (AUTO) 59.5 % (42-75); PLATELET COUNT 266 X10'3 (140-440); RED BLOOD COUNT 4.48 X10'6 (4.20-5.60); RED CELL DISTRIBUTION WIDTH 12.8 % (11.5-14.5); WHITE BLOOD COUNT 9.2 X10'3 (4.5-11.0)
[2019-11-06 23:39] LABS: ALANINE AMINOTRANSFERASE 29 U/L (12-78); ALBUMIN 3.7 G/DL (3.4-5.0); ALKALINE PHOSPHATASE 67 IU/L (46-116); ANION GAP 7 (8-16); ASPARTATE AMINO TRANSFERASE 12 U/L (10-37); BILIRUBIN,TOTAL 0.3 MG/DL (0.1-1.0); BLOOD UREA NITROGEN 16 MG/DL (7-18); BUN/CREATININE RATIO 15.7 (6.6-38.0); CHLORIDE 105 MMOL/L (99-107); CREATININE 1.02 MG/DL (0.40-0.90); GLUCOSE 93 MG/DL (70-104); LIPASE 378 U/L (73-393); SODIUM 141 MMOL/L (135-145); TOTAL CARBON DIOXIDE 29.4 MMOL/L (24-32); TOTAL PROTEIN 7.4 G/DL (6.4-8.2); eGFR 64 ML/MIN
[2019-11-06] MEDS ORDERED: HYDROcodone/acetaminophen 5mg/325mg tablet PO ONE (23:45)
[2019-11-06] MEDS ORDERED: HYDR-3965 PO (23:45)
[2019-11-06 23:48] LABS: CLARITY,URINE CLEAR (Clear); COLOR,URINE YELLOW (Yellow); GLUCOSE, URINE NEGATIVE (Neg); KETONES,URINE NEGATIVE (Neg); LEUKOCYTE ESTERASE ,URINE NEGATIVE (Neg); NITRITES, URINE NEGATIVE (Neg); OCCULT BLOOD,URINE NEGATIVE (Neg); PROTEIN,URINE NEGATIVE (Neg); UROBILINOGEN,URINE 0.2 E.U/dL (0.2-1.0)
[2019-11-06 23:49] LABS: UA COLLECTION TYPE CLN CATCH MIDSTREAM; URINE HCG NEGATIVE (NEG)
[2019-11-07 00:07] VITALS: BP 105/75
== END 2019-11-07 00:10 | disposition home or self-care (01) ==
LOC: ER 22:39
DX: R10.84 Generalized abdominal pain (principal); R11.0 Nausea; G89.29 Other chronic pain; F41.9 Anxiety disorder, unspecified; F32.9 Major depressive disorder, single episode, unspecified; Z90.89 Acquired absence of other organs; Z88.8 Allergy status to other drugs, medicaments and biological substances; Z91.040 Latex allergy status; Z79.899 Other long term (current) drug therapy
CPT/HCPCS: 36415; 74176; 80053; 81003; 81025; 83690; 85025; 96374; 96375; 99284; J2270; J2405

== ENCOUNTER 2019-11-29 00:07 | Emergency (ER) | payer OTHER, MEDICAID ==
[~2019-11-29] VITALS: Ht 147.3 cm; Wt 80.3 kg
[~2019-11-29 00:07] MED LIST changes: -ACET-1008 PO; +HYDR-3965 PO
--- NOTE | 2019-11-29 00:33 | NUR ---
Spoke with MD yu pt's complaint. Verbal order received for CT of neck.
[2019-11-29 01:00] VITALS: BP 109/69
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
[2019-11-29] MEDS ORDERED: ondansetron 4mg rapidly disintigrating tab PO STA (01:57)
[2019-11-29] MEDS ORDERED: HYDROcodone/acetaminophen 10/325mg tab PO STA (01:57)
--- NOTE | 2019-11-29 01:58 | NUR ---
sbar to and received order for marcella and angelina 10
--- NOTE | 2019-11-29 02:05 | NUR ---
stated I could remove the C Collar. Pt very happy to have that off.
[2019-11-29] MEDS ORDERED: ketorolac trometh inj. 60 MG/2 ML VIAL IM ONE (02:30)
[2019-11-29] MEDS ORDERED: morphine 4 MG/ML inj SYRINge IM ONE (02:30)
== END 2019-11-29 02:53 | disposition home or self-care (01) ==
LOC: ER 00:08
DX: S39.011A Strain of muscle, fascia and tendon of abdomen, initial encounter (principal); S16.1XXA Strain of muscle, fascia and tendon at neck level, initial encounter; F32.9 Major depressive disorder, single episode, unspecified; G89.29 Other chronic pain; F41.9 Anxiety disorder, unspecified; Z90.49 Acquired absence of other specified parts of digestive tract; Z98.890 Other specified postprocedural states; Z91.040 Latex allergy status; Z88.8 Allergy status to other drugs, medicaments and biological substances; Z79.899 Other long term (current) drug therapy; V49.9XXA Car occupant (driver) (passenger) injured in unspecified traffic accident, initial encounter; Y93.89 Activity, other specified; Y92.410 Unspecified street and highway as the place of occurrence of the external cause; Y99.8 Other external cause status
CPT/HCPCS: 72125; 96372; 99284; J1885; J2270

== ENCOUNTER 2019-12-05 22:33 | Observation (INO) | payer MEDICAID ==
[~2019-12-05] VITALS: Ht 147.3 cm; Wt 75.0 kg
--- NOTE | 2019-12-05 23:04 | NUR ---
Dr. Espinoza at bedside evaluating pt.
[2019-12-05] MEDS ORDERED: normal saline 1000ML IV soln IVB ONE (23:10)
[2019-12-05] MEDS ORDERED: ondansetron/PF 4mg/2ml inj IV ONE (23:10)
[2019-12-05] MEDS: morphine 4 MG/ML inj SYRINge IV PRN (23:24)
[2019-12-06 00:12] LABS: BASOPHILS % (AUTO) 0.2 % (0-1); EOSINOPHILS # (AUTO) 0.1 X10'3 (0-0.9); HEMATOCRIT 40.7 % (35.0-45.0); HEMOGLOBIN 13.5 g/dl (12.0-16.0); LYMPHOCYTES # (AUTO) 1.8 X10'3 (1.1-4.8); MEAN CORPUSCULAR HEMOGLOBIN 30.7 PG (27.0-31.0); MEAN CORPUSCULAR HGB CONC 33.1 g/dL (33.0-36.5); MEAN CORPUSCULAR VOLUME 92.6 FL (78-98); MEAN PLATELET VOLUME 6.9 FL (7.4-10.4); MONOCYTES # (AUTO) 0.6 X10'3 (0-0.9); NEUTROPHILS # (AUTO) 5.1 X10'3 (1.8-7.7); NEUTROPHILS % (AUTO) 66.8 % (42-75); PLATELET COUNT 227 X10'3 (140-440); RED CELL DISTRIBUTION WIDTH 13.1 % (11.5-14.5); WHITE BLOOD COUNT 7.7 X10'3 (4.5-11.0)
[2019-12-06 00:12] LABS: URINE HCG NEGATIVE (NEG)
[2019-12-06 00:24] LABS: CLARITY,URINE CLEAR (Clear); COLOR,URINE YELLOW (Yellow); GLUCOSE, URINE NEGATIVE (Neg); KETONES,URINE NEGATIVE (Neg); LEUKOCYTE ESTERASE ,URINE NEGATIVE (Neg); NITRITES, URINE NEGATIVE (Neg); OCCULT BLOOD,URINE NEGATIVE (Neg); PH,URINE 5.5 (4.8-8.0); PROTEIN,URINE NEGATIVE (Neg); UA COLLECTION TYPE CLN CATCH MIDSTREAM; UROBILINOGEN,URINE 0.2 E.U/dL (0.2-1.0)
[2019-12-06] MEDS ORDERED: HYDR-3964 PO (00:27)
[2019-12-06 00:43] LABS: ALANINE AMINOTRANSFERASE 19 U/L (12-78); ALBUMIN 3.6 G/DL (3.4-5.0); ALKALINE PHOSPHATASE 75 IU/L (46-116); ANION GAP 7 (8-16); ASPARTATE AMINO TRANSFERASE 13 U/L (10-37); BILIRUBIN,TOTAL 0.3 MG/DL (0.1-1.0); BLOOD UREA NITROGEN 15 MG/DL (7-18); BUN/CREATININE RATIO 13.6 (6.6-38.0); CALCIUM 8.8 MG/DL (8.5-10.1); CHLORIDE 107 MMOL/L (99-107); GLUCOSE 100 MG/DL (70-104); LIPASE 211 U/L (73-393); POTASSIUM 3.5 MMOL/L (3.5-5.1); SODIUM 142 MMOL/L (135-145); TOTAL CARBON DIOXIDE 28.1 MMOL/L (24-32); TOTAL PROTEIN 7.3 G/DL (6.4-8.2); eGFR 58 ML/MIN
[2019-12-06] MEDS: morphine 4 MG/ML inj SYRINge IV PRN (00:54)
[2019-12-06] MEDS ORDERED: acetaminophen 325mg tablet PO PRN (01:10)
[2019-12-06] MEDS ORDERED: potassium Cl 20 mEq SR tablet PO PRN ×2 (01:10)
[2019-12-06] MEDS ORDERED: potassium CL 10mEq/100ml bag 100 ML IV PRN ×2 (01:10)
[2019-12-06] MEDS ORDERED: magnesium 2GM in 50ml NS 50 ML IV PRN (01:10)
[2019-12-06] MEDS ORDERED: ondansetron/PF 4mg/2ml inj IV PRN (01:10)
[2019-12-06] MEDS ORDERED: magnesium 4gm in 100ml NS 100 ML IV PRN (01:10)
[2019-12-06] MEDS ORDERED: morphine 2 MG/ML inj. syringe IV PRN (01:10)
[2019-12-06] MEDS ORDERED: mag hydrox/Alum hydrox/simeth 30ml oral suspension PO PRN (01:10)
[2019-12-06] MEDS ORDERED: magnesium hydroxide 30ml (MOM) UD suspension PO PRN (01:10)
[2019-12-06] MEDS ORDERED: magnesium Cl slow-release 64mg tablet PO PRN (01:10)
--- NOTE | 2019-12-06 02:00 | NUR ---
Patient in room [facility] 4022. I have received report from CATHERINE Oliver and had the opportunity to ask questions and assume patient care.
[2019-12-06 02:20] VITALS: BP 115/63
[2019-12-06 06:00] VITALS: BP 93/55
--- NOTE | 2019-12-06 06:30 | NUR ---
Problems reprioritized. Patient report given, questions answered & plan of care reviewed with CATHERINE Elias.
[2019-12-06] MEDS ORDERED: K and/or MAG REPLACEMENT MC SCH (08:00)
--- NOTE | 2019-12-06 10:00 | NUR ---
Per MD Duke, patient okay for discharge. PIV removed, cannula intact. Belongings gathered and sent home with patient.
== END 2019-12-06 09:45 | disposition home or self-care (01) ==
LOC: ER 22:34 → ED HOLD 12-06 01:06 → ORTHO 4S 12-06 02:12
PROVIDERS: ADMIT Family Medicine; ATTEND Internal Medicine
DX: R10.84 Generalized abdominal pain (principal); K52.9 Noninfective gastroenteritis and colitis, unspecified; F41.9 Anxiety disorder, unspecified; F32.9 Major depressive disorder, single episode, unspecified; G89.29 Other chronic pain; M54.9 Dorsalgia, unspecified; Z90.49 Acquired absence of other specified parts of digestive tract; Z79.899 Other long term (current) drug therapy; Z88.8 Allergy status to other drugs, medicaments and biological substances; Z91.040 Latex allergy status
CPT/HCPCS: 36415; 74176; 80053; 81003; 81025; 83690; 85025; 87081; 96361; 96374; 96375; 96376; 99284; G0378; J2270; J2405; J7030

== ENCOUNTER 2021-05-28 22:03 | Emergency (ER) | payer MEDICAID ==
[~2021-05-28] VITALS: Ht 147.3 cm; Wt 170.0 kg
[~2021-05-28 22:03] MED LIST changes: -FAMO20TA8 PO; +HYDR-3964 PO; -HYDR-3965 PO; -IBUP-1985 PO
[2021-05-28] MEDS ORDERED: ondansetron 4mg rapidly disintigrating tab PO ONE (22:50)
[2021-05-29] MEDS ORDERED: iohexol 350MG/ML 100ml bottle IV ONE (00:20)
[2021-05-29 00:50] LABS: BASOPHILS % (AUTO) 0.1 % (0-1); EOSINOPHILS # (AUTO) 0.1 X10'3 (0-0.9); EOSINOPHILS % (AUTO) 1.9 % (0-6); HEMATOCRIT 40.8 % (35.0-45.0); HEMOGLOBIN 14.2 g/dl (12.0-16.0); LYMPHOCYTES # (AUTO) 1.4 X10'3 (1.1-4.8); LYMPHOCYTES % (AUTO) 29.1 % (21-51); MEAN CORPUSCULAR HEMOGLOBIN 31.4 PG (27.0-31.0); MEAN CORPUSCULAR HGB CONC 34.9 g/dL (33.0-36.5); MEAN CORPUSCULAR VOLUME 89.9 FL (78-98); MEAN PLATELET VOLUME 6.8 FL (7.4-10.4); MONOCYTES # (AUTO) 0.5 X10'3 (0-0.9); MONOCYTES % (AUTO) 10.8 % (2-12); NEUTROPHILS # (AUTO) 2.7 X10'3 (1.8-7.7); NEUTROPHILS % (AUTO) 58.1 % (42-75); PLATELET COUNT 219 X10'3 (140-440); RED BLOOD COUNT 4.54 X10'6 (4.20-5.60); RED CELL DISTRIBUTION WIDTH 13.2 % (11.5-14.5); WHITE BLOOD COUNT 4.7 X10'3 (4.5-11.0)
[2021-05-29 01:00] LABS: ALANINE AMINOTRANSFERASE 34 U/L (12-78); ALBUMIN 3.8 G/DL (3.4-5.0); ALKALINE PHOSPHATASE 73 IU/L (46-116); ANION GAP 11 (8-16); ASPARTATE AMINO TRANSFERASE 18 U/L (10-37); BILIRUBIN,TOTAL 0.3 MG/DL (0.1-1.0); BLOOD UREA NITROGEN 15 MG/DL (7-18); BUN/CREATININE RATIO 18.5 (6.6-38.0); CALCIUM 8.5 MG/DL (8.5-10.1); CHLORIDE 103 MMOL/L (99-107); CREATININE 0.81 MG/DL (0.40-0.90); GLUCOSE 80 MG/DL (70-104); POTASSIUM 3.6 MMOL/L (3.5-5.1); SODIUM 141 MMOL/L (135-145); TOTAL PROTEIN 7.5 G/DL (6.4-8.2); eGFR 82 ML/MIN
[2021-05-29] MEDS ORDERED: normal saline 1000ml 1,000 ML IV ONE (01:20)
[2021-05-29] MEDS ORDERED: meclizine 12.5mg tablet PO ONE (01:20)
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
[2021-05-29 02:07] LABS: HCG SERUM QL NEGATIVE
[2021-05-29] MEDS ORDERED: MECL-159 PO (02:32)
[2021-05-29 03:04] VITALS: BP 120/72
== END 2021-05-29 03:06 | disposition home or self-care (01) ==
LOC: ER 22:04
DX: S09.8XXA Other specified injuries of head, initial encounter (principal); Z20.822 Contact with and (suspected) exposure to COVID-19; H81.399 Other peripheral vertigo, unspecified ear; R51.9 Headache, unspecified; R50.9 Fever, unspecified; R53.83 Other fatigue; R11.0 Nausea; R42 Dizziness and giddiness; F41.9 Anxiety disorder, unspecified; G89.29 Other chronic pain; F32.9 Major depressive disorder, single episode, unspecified; Z90.89 Acquired absence of other organs; Z98.890 Other specified postprocedural states; Z88.8 Allergy status to other drugs, medicaments and biological substances; Z91.040 Latex allergy status; Z79.899 Other long term (current) drug therapy; X58.XXXA Exposure to other specified factors, initial encounter; Y93.9 Activity, unspecified; Y92.89 Other specified places as the place of occurrence of the external cause; Y99.8 Other external cause status
CPT/HCPCS: 36415; 70450; 70496; 70498; 80053; 84703; 85025; 87635; 93005; 96360; 99285; C9803; J7030; J8597; Q9967

== ENCOUNTER 2021-06-26 13:02 | Emergency (ER) | payer MEDICAID ==
[~2021-06-26] VITALS: Ht 147.3 cm; Wt 72.7 kg
[~2021-06-26 13:02] MED LIST changes: +MECL-159 PO
[2021-06-26 13:40] VITALS: BP 90/57
[2021-06-26] MEDS ORDERED: ketorolac trometh. 30mg/ml inj. IV ONE (14:45)
[2021-06-26] MEDS ORDERED: normal saline 1000ml 1,000 ML IV SCH (14:45)
[2021-06-26] MEDS ORDERED: ondansetron/PF 4mg/2ml inj IV ONE (14:45)
[2021-06-26] MEDS ORDERED: ALBU8HFA PO (15:44)
[2021-06-26] MEDS ORDERED: ONDA4TAB12 PO (19:13)
== END 2021-06-26 18:30 | disposition home or self-care (01) ==
LOC: ER 13:02
DX: U07.1 COVID-19 (principal); R50.9 Fever, unspecified; R11.2 Nausea with vomiting, unspecified; G89.29 Other chronic pain; Z90.49 Acquired absence of other specified parts of digestive tract; Z88.8 Allergy status to other drugs, medicaments and biological substances; Z91.040 Latex allergy status; Z79.899 Other long term (current) drug therapy
CPT/HCPCS: 96361; 96374; 96375; 99284; J1885; J2405; J7030

== ENCOUNTER 2021-09-10 04:38 | Emergency (ER) | payer MEDICAID ==
[~2021-09-10] VITALS: Ht 147.3 cm; Wt 81.7 kg
[~2021-09-10 04:38] MED LIST changes: +ONDA4TAB12 PO
[2021-09-10] MEDS ORDERED: haloperidol lactate 5mg/ml inj IM ONE (05:10)
[2021-09-10 05:52] LABS: BASOPHILS % (AUTO) 0.2 % (0-1); EOSINOPHILS # (AUTO) 0.1 X10'3 (0-0.9); EOSINOPHILS % (AUTO) 0.7 % (0-6); HEMATOCRIT 42.8 % (35.0-45.0); HEMOGLOBIN 14.5 g/dl (12.0-16.0); LYMPHOCYTES % (AUTO) 9.9 % (21-51); MEAN CORPUSCULAR HGB CONC 33.9 g/dL (33.0-36.5); MEAN CORPUSCULAR VOLUME 88.4 FL (78-98); MEAN PLATELET VOLUME 6.7 FL (7.4-10.4); MONOCYTES # (AUTO) 0.8 X10'3 (0-0.9); NEUTROPHILS # (AUTO) 7.8 X10'3 (1.8-7.7); NEUTROPHILS % (AUTO) 81.2 % (42-75); PLATELET COUNT 271 X10'3 (140-440); RED BLOOD COUNT 4.84 X10'6 (4.20-5.60); RED CELL DISTRIBUTION WIDTH 13.6 % (11.5-14.5); WHITE BLOOD COUNT 9.7 X10'3 (4.5-11.0)
[2021-09-10 05:59] VITALS: BP 116/77
[2021-09-10 06:08] LABS: URINE HCG NEGATIVE (NEG)
[2021-09-10 06:12] LABS: CLARITY,URINE CLEAR (Clear); COLOR,URINE YELLOW (Yellow); GLUCOSE, URINE NEGATIVE (Neg); KETONES,URINE TRACE mg/dl (Neg); LEUKOCYTE ESTERASE ,URINE NEGATIVE (Neg); NITRITES, URINE NEGATIVE (Neg); OCCULT BLOOD,URINE NEGATIVE (Neg); PH,URINE 5.5 (4.8-8.0); PROTEIN,URINE TRACE mg/dl (Neg)
[2021-09-10 06:14] LABS: ALANINE AMINOTRANSFERASE 44 U/L (12-78); ALBUMIN/GLOBULIN RATIO 1.1 (1.1-1.5); ALKALINE PHOSPHATASE 65 IU/L (46-116); ANION GAP 10 (8-16); ASPARTATE AMINO TRANSFERASE 17 U/L (10-37); BLOOD UREA NITROGEN 18 MG/DL (7-18); BUN/CREATININE RATIO 20.2 (6.6-38.0); CALCIUM 8.4 MG/DL (8.5-10.1); CHLORIDE 107 MMOL/L (99-107); CREATININE 0.89 MG/DL (0.40-0.90); GLUCOSE 134 MG/DL (70-104); LIPASE 125 U/L (73-393); POTASSIUM 3.9 MMOL/L (3.5-5.1); SODIUM 141 MMOL/L (135-145); TOTAL CARBON DIOXIDE 23.8 MMOL/L (24-32); TOTAL PROTEIN 7.6 G/DL (6.4-8.2); eGFR 74 ML/MIN
[2021-09-10 06:16] LABS: UA COLLECTION TYPE CLN CATCH MIDSTREAM
[2021-09-10 06:18] LABS: BACTERIA,URINE 2+ /HPF (Neg); MUCUS STRANDS MODERATE /LPF (Neg); RBC,URINE 0-2 /HPF (0-2); SQUAMOUS EPITHELIAL CELL,UR MANY /LPF (FEW); WBC,URINE 0-4 /HPF (0-4)
[2021-09-10 06:31] LABS: C-REACTIVE PROTEIN 0.19 MG/DL (0.0-0.5); MAGNESIUM 2.3 MG/DL (1.5-2.4)
== END 2021-09-10 07:47 | disposition home or self-care (01) ==
LOC: ER 04:39
DX: R10.84 Generalized abdominal pain (principal); R11.2 Nausea with vomiting, unspecified; G89.29 Other chronic pain; F41.9 Anxiety disorder, unspecified; F32.A Depression, unspecified; Z90.89 Acquired absence of other organs; Z98.890 Other specified postprocedural states; Z88.8 Allergy status to other drugs, medicaments and biological substances; Z91.040 Latex allergy status; Z79.899 Other long term (current) drug therapy
CPT/HCPCS: 36415; 74018; 80053; 81001; 81025; 83690; 83735; 84484; 85025; 86140; 87502; 87503; 96372; 99284; J1630

== ENCOUNTER 2022-03-03 23:13 | Emergency (ER) | payer MEDICAID ==
[~2022-03-03] VITALS: Ht 147.3 cm; Wt 77.0 kg
[2022-03-03 23:25] VITALS: BP 115/79
[2022-03-04] MEDS ORDERED: HYDROcodone/acetaminophen 10/325mg tab PO ONE (01:30)
[2022-03-04] MEDS ORDERED: penicillin V potassium 500mg tablet PO ONE (01:30)
[2022-03-04] MEDS ORDERED: HYDR-3972 PO (01:31)
[2022-03-04] MEDS ORDERED: ONDA4TAB12 PO (01:31)
[2022-03-04] MEDS ORDERED: PENI500T2 PO (01:31)
[2022-03-04] MEDS ORDERED: ondansetron 4mg rapidly disintigrating tab PO ONE (01:35)
--- NOTE | 2022-03-04 01:39 | NUR ---
P0 MEDS X3 GIVEN
== END 2022-03-04 01:45 | disposition home or self-care (01) ==
LOC: ER 23:14
DX: K08.89 Other specified disorders of teeth and supporting structures (principal); G89.29 Other chronic pain; F41.9 Anxiety disorder, unspecified; F32.A Depression, unspecified; Z98.890 Other specified postprocedural states; Z90.89 Acquired absence of other organs; Z91.040 Latex allergy status; Z88.8 Allergy status to other drugs, medicaments and biological substances; Z79.2 Long term (current) use of antibiotics; Z79.899 Other long term (current) drug therapy
CPT/HCPCS: 99284

== ENCOUNTER 2023-11-02 21:16 | Emergency (ER) | payer MEDICAID ==
[~2023-11-02 21:16] MED LIST changes: -MECL-159 PO; +MECL-302 PO
== END 2023-11-02 22:17 | disposition left against medical advice (07) ==
LOC: ER 21:16
DX: R68.84 Jaw pain (principal); Z53.21 Procedure and treatment not carried out due to patient leaving prior to being seen by health care provider

== ENCOUNTER 2023-11-30 09:20 | Emergency (ER) | payer MEDICAID ==
[~2023-11-30] VITALS: Ht 147.3 cm; Wt 75.0 kg
[2023-11-30 09:24] VITALS: TEMP 98.6
[2023-11-30 10:15] LABS: BASOPHILS % (AUTO) 0.4 % (0-1); EOSINOPHILS # (AUTO) 0.3 X10'3 (0-0.9); EOSINOPHILS % (AUTO) 2.3 % (0-6); HEMATOCRIT 38.1 % (35.0-45.0); HEMOGLOBIN 12.7 g/dl (12.0-16.0); LYMPHOCYTES # (AUTO) 1.8 X10'3 (1.1-4.8); LYMPHOCYTES % (AUTO) 14.7 % (21-51); MEAN CORPUSCULAR HEMOGLOBIN 29.9 PG (27.0-31.0); MEAN CORPUSCULAR HGB CONC 33.3 g/dL (33.0-36.5); MEAN PLATELET VOLUME 6.8 FL (7.4-10.4); MONOCYTES # (AUTO) 0.9 X10'3 (0-0.9); MONOCYTES % (AUTO) 7.6 % (2-12); NEUTROPHILS # (AUTO) 9.2 X10'3 (1.8-7.7); PLATELET COUNT 205 X10'3 (140-440); RED BLOOD COUNT 4.23 X10'6 (4.20-5.60); RED CELL DISTRIBUTION WIDTH 13.1 % (11.5-14.5); WHITE BLOOD COUNT 12.3 X10'3 (4.5-11.0)
[2023-11-30 10:24] LABS: URINE HCG NEGATIVE (NEG)
[2023-11-30 10:34] LABS: BILIRUBIN,URINE NEGATIVE (Neg); CLARITY,URINE CLOUDY (Clear); COLOR,URINE YELLOW (Yellow); GLUCOSE, URINE NEGATIVE (Neg); KETONES,URINE NEGATIVE (Neg); LEUKOCYTE ESTERASE ,URINE NEGATIVE (Neg); NITRITES, URINE NEGATIVE (Neg); OCCULT BLOOD,URINE NEGATIVE (Neg); PROTEIN,URINE NEGATIVE (Neg); UROBILINOGEN,URINE 0.2 E.U/dL (0.2-1.0)
[2023-11-30 10:37] LABS: UA COLLECTION TYPE VOIDED
[2023-11-30 10:38] LABS: ALANINE AMINOTRANSFERASE 32 U/L (12-78); ALBUMIN 3.2 G/DL (3.4-5.0); ALBUMIN/GLOBULIN RATIO 0.8 (1.1-1.5); ALKALINE PHOSPHATASE 66 IU/L (46-116); ANION GAP 10 (8-16); ASPARTATE AMINO TRANSFERASE 21 U/L (10-37); BILIRUBIN,TOTAL 0.6 MG/DL (0.1-1.0); BLOOD UREA NITROGEN 11 MG/DL (7-18); BUN/CREATININE RATIO 12.9 (10.0-20.0); CALCIUM 8.7 MG/DL (8.5-10.1); CHLORIDE 102 MMOL/L (99-107); CREATININE 0.85 MG/DL (0.40-0.90); GLUCOSE 128 MG/DL (70-104); LIPASE 37 U/L (16-77); POTASSIUM 3.7 MMOL/L (3.5-5.1); SODIUM 135 MMOL/L (135-145); TOTAL CARBON DIOXIDE 23.1 MMOL/L (24-32); TOTAL PROTEIN 7.4 G/DL (6.4-8.2); eCRCL 60 ML/MIN; eGFR 77 ML/MIN
[2023-11-30 10:49] LABS: MUCUS STRANDS MODERATE /LPF (Neg); SQUAMOUS EPITHELIAL CELL,UR MANY /LPF (FEW)
[2023-11-30 10:50] LABS: BACTERIA,URINE 1+ /HPF (Neg); RBC,URINE 0-2 /HPF (0-2); WBC,URINE 0-4 /HPF (0-4)
[2023-11-30] MEDS: normal saline 1000ML IV soln IVB ONE (10:59)
[2023-11-30] MEDS: ondansetron/PF 4mg/2ml inj IV ONE (10:59)
[2023-11-30] MEDS: morphine 4 MG/ML inj SYRINge IV ONE (11:00)
[2023-11-30] MEDS ORDERED: iohexol 300mg/ml 100ml inj. ONE (11:24)
[2023-11-30] MEDS ORDERED: HYDR-3717 PO (14:39)
[2023-11-30 15:13] VITALS: BP 98/56; PULSE 101; O2SAT 100
[2023-11-30] MEDS: CefTRIAXone/D5W-Rocephin 1gm 50 ML IV ONE (15:14)
[2023-11-30 15:15] VITALS: RESP 17
[2023-11-30] MEDS ORDERED: AMOX-117 PO (15:37)
[2023-11-30] MEDS ORDERED: METR-159 PO (15:37)
== END 2023-11-30 16:27 | disposition home or self-care (01) ==
LOC: ER 09:20
DX: R10.2 Pelvic and perineal pain (principal); R59.1 Generalized enlarged lymph nodes; D72.828 Other elevated white blood cell count; G89.29 Other chronic pain; M54.9 Dorsalgia, unspecified; F41.9 Anxiety disorder, unspecified; F32.A Depression, unspecified; Z98.890 Other specified postprocedural states; Z88.8 Allergy status to other drugs, medicaments and biological substances; Z91.040 Latex allergy status; Z79.2 Long term (current) use of antibiotics; Z79.899 Other long term (current) drug therapy; Z90.49 Acquired absence of other specified parts of digestive tract
CPT/HCPCS: 36415; 74178; 76856; 80053; 81001; 81025; 83690; 84145; 85025; 93976; 96361; 96374; 96375; 99285; J0696; J2270; J2405; J7030; Q9967; 96365

== ENCOUNTER 2025-03-24 12:04 | Inpatient (IN) | payer MEDICAID ==
[2025-03-16 11:51] LABS: MEAN PLATELET VOLUME 6.4 FL (7.4-10.4); PRE OP HEMATOCRIT 40.4 % (35.0-45.0); PRE OP HEMOGLOBIN 13.7 g/dL (12.0-16.0); PRE OP PLATELET COUNT 217 X10'3 (140-440); PRE OP WHITE BLOOD COUNT 4.6 10'3 (4.8-10.8); RED CELL DISTRIBUTION WIDTH 13.4 % (11.5-14.5)
[2025-03-16 12:04] LABS: HCG SERUM QL NEGATIVE
[2025-03-16 12:10] LABS: CREATININE 0.88 MG/DL (0.40-0.90); PRE OP ALT 42 U/L (30-65); PRE OP ANION GAP 7 (8-16); PRE OP AST 19 U/L (10-37); PRE OP BILIRUB, TOTAL 0.3 MG/DL (0.0-1.0); PRE OP GLUCOSE 142 MG/DL (70-104); PRE OP POTASSIUM 3.6 MMOL/L (3.4-5.1); PRE OP SODIUM 143 MMOL/L (135-145); TOTAL CARBON DIOXIDE 28.0 MMOL/L (24-32); eGFR 73 ML/MIN
[2025-03-24] VITALS (32 sets, daily range): BP systolic 90–145; BP diastolic 51–80; PULSE 64–120; RESP 11–20; TEMP 97.5–98.8; O2SAT 90–100
[~2025-03-24] VITALS: Ht 149.9 cm; Wt 85.8 kg
[2025-03-24] MEDS: ceFAZolin 2gm/dext,iso 50mL 50 ML IV ONE (05:30)
[~2025-03-24 12:04] MED LIST changes: +HYDR-3686 PO; -HYDR-3964 PO; -MECL-302 PO; -ONDA4TAB12 PO; +PROBIOTIC PO
[2025-03-24 12:58] LABS: URINE HCG NEGATIVE (NEG)
[2025-03-24] MEDS: ringers solution, lacted 1,000 ML IV SCH ×2 (13:06→17:31)
[2025-03-24] MEDS ORDERED: LIDOcaine 1% 30ml preserv. free vial ONE (14:20)
[2025-03-24] MEDS ORDERED: BUPIVAcaine 2.5mg/ml inj 50ml vial (contains preservative) ONE (14:20)
[2025-03-24] MEDS ORDERED: BUPIVACAINE liposomal/PF 13.3 MG/ML 10mL vial IM ONE (14:21)
[2025-03-24] MEDS ORDERED: BUPIVAcaine/PF 2.5mg/ml (0.25%) 10ml vial ONE (14:21)
[2025-03-24] MEDS ORDERED: ondansetron/PF 4mg/2ml inj IV PRN (15:00)
[2025-03-24] MEDS ORDERED: HYDROmorphone/PF 0.2 MG/ML SYRINGE IV PRN ×2 (15:00)
[2025-03-24] MEDS ORDERED: labetalol 20mg/4ml (5mg/ml) syringe IV PRN (15:00)
[2025-03-24] MEDS ORDERED: hydrALAZINE 20mg/ml inj. IV PRN (15:00)
[2025-03-24] MEDS ORDERED: midazolam 1 mg/ML 2ml injection ONE (15:06)
[2025-03-24] MEDS: LIDOcaine 1% 30ml preserv. free vial IJ ONE (15:07)
[2025-03-24] MEDS: BUPIVACAINE liposomal/PF 13.3 MG/ML 10mL vial IM ONE (15:07)
[2025-03-24] MEDS: BUPIVAcaine/PF 2.5 mg/ml (0.25%) 30ml vial IJ ONE ×2 (15:07)
[2025-03-24] MEDS ORDERED: fentaNYL /PF 50mcg/ml 5ml ampule ONE (15:18)
[2025-03-24] MEDS ORDERED: propofol inj 20 ML IV ONE (15:19)
[2025-03-24] MEDS ORDERED: dexamethasone sod phosphate 4mg/ml inj. ONE (15:19)
[2025-03-24] MEDS ORDERED: rocuronium 10mg/ml inj IV ONE (15:19)
[2025-03-24] MEDS ORDERED: LIDOcaine 2% (20mg/ml) 5ml vial ONE (15:19)
[2025-03-24] MEDS ORDERED: ondansetron/PF 4mg/2ml inj ONE (15:19)
[2025-03-24] MEDS ORDERED: glycopyrrolate 0.2mg/ml inj ONE (17:15)
[2025-03-24] MEDS: morphine 4 MG/ML inj SYRINge IV PRN (17:53)
[2025-03-24] MEDS ORDERED: PER5325T PO (17:58)
[2025-03-24] MEDS: acetaminophen 1,000mg/100ml IV 100 ML IV PRN (18:19)
[2025-03-24] MEDS: oxyCODONE/APAP 5-325mg tablet PO PRN (18:41)
--- NOTE | 2025-03-24 19:26 | OPERATIVE REPORT ---
Operative Report Providers to CC CC: SANJU CAMPOS MD ~ Date of Procedure: Mar 24, 2025 Pre-Operative Diagnosis: Recurrent incisional hernia Post-Operative Diagnosis 15 cm recurrent incisional hernia Procedure Performed Robotic assisted, laparoscopic enterolysis-extensive Robotic assisted, laparoscopic 15 cm recurrent incisional hernia repair with mesh Bilateral transversus abdominis plane nerve blocks by injection using 266 mg of Exparel Surgeon: Sanju Campos MD FACS Fishing Vessel Mate None Anesthesiologist: Hector Harper Type of Anesthesia: General Findings: 15 x 6 cm midline fascial defect Extensive adhesions within the abdomen involving multiple loops of small bowel adherent to the anterior abdominal wall Wound class I Complications None Prosthetics\Implants used: 20 x 15 cm coated polyester mesh Estimated Blood Loss: Minimal Specimen Removed: None Description of Procedure: Patient was brought to the operating room and identified by the nursing staff and the attending physician. Patient was placed supine and a general anesthesia was induced. Preoperative antibiotics were given. The abdomen was prepped and draped in the standard sterile fashion. Through a left subcostal stab incision the abdomen was accessed with a Veress needle technique. Abdomen was insufflated without incident. The incision was lengthened to accommodate a 12 mm optical trocar and the abdomen was entered under laparoscopic visualization. The abdomen was surveyed laparoscopically. The entire abdominal midline was obscured by adhesions between omentum, small bowel and the anterior abdominal wall. There was adequate space for additional port placement along the left pericolic gutter just anterior to the left white line of Toldt. Under laparoscopic visualization, robotic trochars were placed in the left la teral and left lower quadrant. The da Jacobo robotic arm was docked to the patient and instruments guided intra-abdominally under laparoscopic visualization. The next 45-60 minutes was spent taking down adhesions between omentum, small bowel and the anterior abdominal wall. Once the enterolysis was completed, a very large midline defect was revealed. Defect measured 15 x 6 cm with the deepest portion of the hernia sac in the mid epigastrium. Fascial defect(s) were then reapproximated with running, nonabsorbable, 0V lock suture. This required 3 ft of nonabsorbable suture. Good fascial apposition was obtained without significant tension. A coated polyester mesh was then fixed to the anterior abdominal wall with running, absorbable, 2/0, V lock suture. Mesh laid without wrinkles or folds. The mesh measured 20 x 15 cm. The da Jacobo instruments were then removed and the robot undocked from the patient. Bilateral transversus abdominis plane nerve blocks by injection were then placed under laparoscopic visualization using a combination of Marcaine and 266 mg of Exparel. The left subcostal trocar was removed and its fascia closed percutaneously with 0 Vicryl suture under laparoscopic visualization. Remaining trochars were removed after the abdomen was allowed to deflate. Skin was closed at all sites with 4-0 Monocryl sutures and dressed with sterile dressings. Patient was awakened and taken to the postanesthesia care unit in stable condition. Counts repoted as correct: Yes SANJU CAMPOS MD Mar 24, 2025 19:26
[2025-03-24] MEDS: ondansetron 4mg rapidly disintigrating tab PO ONE (20:33)
[2025-03-24] MEDS: potassium CL 20mEq in D5-1/2NS 1,000 ML IV SCH (21:35)
[2025-03-24] MEDS: HYDROmorph/NS 0.2 mg/ml PCA 100 ML IV SCH (22:26)
[2025-03-25] VITALS: RESP 16; O2SAT 99
[2025-03-25] MEDS: normal saline 1000ml 1,000 ML IV SCH (00:11)
[2025-03-25 02:00] VITALS: BP_SYST 100; BP_SYST 147; BP_DIAS 53; BP_DIAS 69; PULSE 68; PULSE 80; RESP 18; TEMP 97.3; TEMP 97.6; O2SAT 96; O2SAT 97
[2025-03-25] MEDS: ondansetron/PF 4mg/2ml inj IV PRN (02:45)
[2025-03-25 06:00] VITALS: BP 102/67; PULSE 78; RESP 19; TEMP 97.5; O2SAT 98
[2025-03-25 08:00] VITALS: RESP 16; O2SAT 99
[2025-03-25] MEDS: docusate sod 100mg capsule PO SCH (08:04)
[2025-03-25] MEDS: heparin, porcine 5000 units/ml vial SQ SCH (08:05)
[2025-03-25 09:00] VITALS: RESP 16
[2025-03-25] MEDS: oxyCODONE/APAP 5-325mg tablet PO PRN (13:50)
--- NOTE | 2025-03-25 14:56 | DISCHARGE SUMMARY ---
Discharge Summary Providers to CC CC: SANJU CAMPOS MD ~ Discharge Summary Admission Diagnosis: Recurrent incisional hernia - 15cm Hospital Course DATE OF ADMISSION: March 24, 2025 DATE OF DISCHARGE: March 25, 2025 Discharge Diagnosis\Comment: 15 cm recurrent incisional hernia Operations\Procedures: Robotic assisted, laparoscopic recurrent 15 cm incisional hernia repair with mesh Bilateral transversus abdominis plane nerve blocks by injection using 266 mg of Exparel Consultants: Sanju Campos MD FACS Complications: None Condition on DC: Stable New Medications: Oxycodone Hcl/Acetaminophen 5/325 MG* (Percocet 5/325 MG*) 5 Mg/325 Mg Tablet 1 TAB PO Q4H PRN for moderate or severe pain 4-10 for 5 Days, #30 TAB Continued Medications: Hydroxyzine Hcl* (Atarax*) 25 Mg Tablet 1 TAB PO HS PRN for ANXIETY [Probiotic] () 1 TAB PO DAILY Discharge Summary: Patient was planned to go home, however, in the recovery room she was having significant pain requiring additional IV pain medication. She was also having hypoxia with an oxygen saturation of 90%. Given the very large size of her hernia and her significant pain, she was admitted overnight. On the day following surgery, she was tolerating a diet and passing flatus. Pain was adequately controlled with oral pain medication and deemed ready for discharge home. *Problems/Diagnosis: (1) Recurrent incisional hernia Status: Chronic Total Time Spent on D/C: Up to 30 Minutes Counseling Services Smoking & Tobacco Cessation: N/A SANJU CAMPOS MD Mar 25, 2025 14:56
[2025-03-25] MEDS: PCA WASTE DOCUMENTATION 1 MG ML MC SCH (15:00)
== END 2025-03-25 16:14 | disposition home or self-care (01) | DRG 224 ==
LOC: PAS 12:04 → PCU 3S 21:14
PROVIDERS: ADMIT Surgery; ATTEND Surgery
PROC: 0DN84ZZ Release Small Intestine, Percutaneous Endoscopic Approach (ICD-10-PCS; 2025-03-24)
PROC: 0WUF4JZ Supplement Abdominal Wall with Synthetic Substitute, Percutaneous Endoscopic Approach (ICD-10-PCS; 2025-03-24)
PROC: 8E0W4CZ Robotic Assisted Procedure of Trunk Region, Percutaneous Endoscopic Approach (ICD-10-PCS; 2025-03-24)
PROC: 3E0T3BZ Introduction of Anesthetic Agent into Peripheral Nerves and Plexi, Percutaneous Approach (ICD-10-PCS; 2025-03-24)
PROC: 0DNU4ZZ Release Omentum, Percutaneous Endoscopic Approach (ICD-10-PCS; principal; 2025-03-24 14:38)
DX: K43.2 Incisional hernia without obstruction or gangrene (principal); K66.0 Peritoneal adhesions (postprocedural) (postinfection); R09.02 Hypoxemia; Z88.8 Allergy status to other drugs, medicaments and biological substances; Z91.040 Latex allergy status
CPT/HCPCS: 36415; 80053; 81025; 82948; 84703; 85025; 87081; A4215; A4615; A4618; C1781; G0378; J0131; J0666; J1100; J1171; J1644; J2003; J2250; J2270; J2405; J2704; J2710; J3010; J3480; J3490; J7040; J7120

== ENCOUNTER 2025-03-27 02:15 | Emergency (ER) | payer MEDICAID ==
[~2025-03-27] VITALS: Ht 149.9 cm; Wt 81.8 kg
[~2025-03-27 02:15] MED LIST changes: +PER5325T PO
[2025-03-27 03:15] VITALS: TEMP 97.6
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
--- NOTE | 2025-03-27 03:28 | Physician Documentation ---
History of Present Illness ~ Chief Complaint: Abdominal Pain w/vomiting Stated Complaint: ABD PAIN/POST SURG Time Seen by MD: 03:20 Primary Medical Doctor: jhoan walk-in Mode of Arrival: POV HPI Patient presents to the emergency room for evaluation of abdominal pain in the light of recent hernia repair by Dr. Graham three days ago. Patient states she bone d some vomiting and shortly after vomiting she had severe abdominal pain. Medication Reconciliation Allergies: Coded Allergies: esomeprazole mag (Verified Allergy, Intermediate, "DIGESTIVE ISSUES", 03/27/25) latex (Verified Allergy, Intermediate, RASH, 03/27/25) Scheduled [Probiotic], 1 TAB PO DAILY, (Reported) Scheduled PRN Hydroxyzine Hcl* (Atarax*), 1 TAB PO HS PRN for ANXIETY, (Reported) Oxycodone Hcl/Acetaminophen 5/325 MG* (Percocet 5/325 MG*), 1 TAB PO Q4H PRN for moderate or severe pain 4-10 Discontinued Medications Hydroxyzine Hcl* (Atarax*), 1 TAB PO HS, (Reported) Discontinued Reason: Prescription changed Past Medical History Past Medical History: Bowel Obstruction, Hernia, Chronic Back Pain, Anxiety, Depression Past Surgical History: abdominal surgery, appendectomy, Alcohol Use: Rarely Drug Use: none Lives with: Family Lives In: Home Occupation: employed Review of Systems ROS All review of systems negative except as per HPI Physical Exam Vital Signs: Temperature: 97.6, Source: Temporal, Heart Rate: 71, Respiratory Rate: 18, BP: 110/74, Pulse Oximetry: 100, Weight: 81.800 Physical Exam General: Patient is awake, alert, oriented x4 in mild distress Head: Normocephalic and atraumatic. Eyes: Conjunctival normal. EOMI. PERRL. ENT: Mucous membranes moist. Neck: Supple, trachea is midline. Chest: Clear to auscultation bilaterally without rales, rhonchi, or wheezes. There is no accessory muscle use or retractions. Cardiac: RRR without murmurs, gallops, or rubs. Abd: Soft, nondistended, diffuse tenderness, with normoactive bowel sounds. No guarding, rebound, or rigidity. Surgical sites appear noninfected Progress Results/Orders Results/Orders Orders - STAN ACOSTA MD Ct Abdomen Pelvis (03/27/25 03:34) Completed Orders - STAN ACOSTA MD Hcg, Ur Ql (03/27/25 02:27) Cbc/Diff (03/27/25 02:27) BMP (03/27/25 02:27) Lipase (03/27/25 02:27) CMP (03/27/25 02:27) Procalcitonin (03/27/25 03:21) LA (03/27/25 03:21) Ondansetron Inj. (Zofran 4mg/2ml Vial) (03/27/25 03:35) Morphine 4mg/Ml Inj. (Morphine Inj.) (03/27/25 03:35) Acetaminophen 1,000mg/100ml Iv (Ofirmev (03/27/25 03:35) Ct Abdomen Pelvis (03/27/25 03:34) Ua W/Microscopic, Cult If Ind (03/27/25 04:13) Medications Received in ER Medications (Trade) Dose Ordered Sig/[place] Route PRN Reason Start Time Stop Time Status Last Admin Dose Admin (Zofran 4mg/2ml vial) 8 mg ONCE ONCE IV 03/27/25 03:35 03/27/25 03:36 DC 03/27/25 04:14 8 MG (morphine inj.) 4 mg ONCE ONCE IV 03/27/25 03:35 03/27/25 03:36 DC 03/27/25 04:14 4 MG Acetaminophen 100 ml @ 400 mls/hr ONCE ONCE IV 03/27/25 03:35 03/27/25 03:49 DC 03/27/25 04:14 400 MLS/HR Vital Signs 03/27/25 03/27/25 03/27/25 02:18 03:13 03:15 Temp 97.6 97.6 Pulse 76 71 Resp 18 18 18 B/P (MAP) 108/63 110/74 (86) Pulse Ox 95 100 Laboratory Tests Test 03/27/25 03:52 03/27/25 04:13 White Blood Count 7.4 Red Blood Count 4.26 Hemoglobin 13.3 Hematocrit 38.2 Mean Corpuscular Volume 89.5 Mean Corpuscular Hemoglobin 31.3 H Mean Corpuscular Hemoglobin Concent 34.9 Red Cell Distribution Width 13.3 Platelet Count 224 Mean Platelet Volume 6.6 L Neutrophils (%) (Auto) 67.0 Lymphocytes (%) (Auto) 21.2 Monocytes (%) (Auto) 9.3 Eosinophils (%) (Auto) 2.1 Basophils (%) (Auto) 0.4 Neutrophils # (Auto) 5.0 Lymphocytes # (Auto) 1.6 Monocytes # (Auto) 0.7 Eosinophils # (Auto) 0.2 Basophils # (Auto) 0.0 CBC Comment Sodium Level 136 Potassium Level 3.6 Chloride Level 101 Carbon Dioxide Level 29.1 Anion Gap 6 L Blood Urea Nitrogen 12 Creatinine 0.86 Estimated GFR/1.73 m2 75 BUN/Creatinine Ratio 14.0 Glucose Level 108 H Lactic Acid Level 0.5 Calcium Level 8.3 L Total Bilirubin 0.5 Aspartate Amino Transf (AST/SGOT) 17 Alanine Aminotransferase (ALT/SGPT) 19 Alkaline Phosphatase 71 Total Protein 7.4 Albumin 3.5 Globulin 3.9 Albumin/Globulin Ratio 0.9 L Lipase 25 Procalcitonin < 0.05 Chemistry Comments Urine Specimen Description Non-specified Urine Color Yellow Urine Clarity Clear Urine pH 6.5 Urine Specific [place] 1.010 Urine Protein Negative Urine Glucose (UA) Negative Urine Ketones Negative Urine Occult Blood Moderate H Urine Nitrite Negative Urine Bilirubin Negative Urine Urobilinogen 0.2 Urine Leukocyte Esterase Negative Urine RBC 0-2 Urine WBC None seen Urine Squamous Epithelial Cells None seen Urine Bacteria None seen Urine Culture Indicated Not ind Volume Urine Centrifuged 10 ml Urine HCG, Qualitative Negative Urine Comment Medical Decision Making Findings Patient presented to the emergency room with abdominal pain as per HPI. Diff Dx GI Bleed:Consideration: Include: Bleeding diathesis Diff Dx Pain:Considerations: Include: -Threatened Diff Dx N/V/D:Considerations: Include: Diarrhea - bacterial Diff Dx Rectal:Considerations: Include: Fistula Departure Disposition: HOME / SELF CARE / HOMELESS Impression: Primary Impression: Abdominal pain Condition: Improved Discharge Instructions: Abdominal Pain (Nonspecific) Referrals: NO PRIMARY CARE PROVIDER (PCP) Signature Scribe Signature: No scribe Attestation: The note accurately reflects work and decisions made by me.Stan Acosta MD 03/27/25 06:18 STAN ACOSTA MD Mar 27, 2025 03:28
[2025-03-27] MEDS: morphine 4 MG/ML inj SYRINge IV ONE (04:14)
[2025-03-27] MEDS: ondansetron/PF 4mg/2ml inj IV ONE (04:14)
[2025-03-27] MEDS: acetaminophen 1,000mg/100ml IV 100 ML IV ONE (04:14)
[2025-03-27 04:25] LABS: MEAN PLATELET VOLUME 6.6 FL (7.4-10.4); RED CELL DISTRIBUTION WIDTH 13.3 % (11.5-14.5)
[2025-03-27 04:29] LABS: CREATININE 0.86 MG/DL (0.40-0.90); TOTAL CARBON DIOXIDE 29.1 MMOL/L (24-32); eCRCL 62 ML/MIN; eGFR 75 ML/MIN
[2025-03-27 04:39] LABS: URINE HCG NEGATIVE (NEG)
[2025-03-27 04:40] LABS: LEUKOCYTE ESTERASE ,URINE NEGATIVE (Neg); NITRITES, URINE NEGATIVE (Neg); OCCULT BLOOD,URINE MODERATE (Neg); UA COLLECTION TYPE NON-SPECIFIED
[2025-03-27 04:54] LABS: SQUAMOUS EPITHELIAL CELL,UR NONE SEEN /LPF (FEW)
--- NOTE | 2025-03-27 06:02 | RADIOLOGY REPORT ---
Exam: CT CT ABDOMEN PELVIS W/ IV CONTRAST History: abd pain s/p hernia repair Comparison Study: CT CT ABDOMEN PELVIS on DOS: 11/30/23, CT ABDOMEN PELVIS on DOS: 12/05/19, CT ABDOMEN PELVIS on DOS: 11/06/19 Technique: Multidetector spiral CT of the abdomen was performed from lung bases to pubic symphysis. Axial imaging was performed with intravenous contrast following the uneventful administration of 100 ml Omnipaque 300. Coronal and sagittal multiplanar reformats were obtained from the axial data set by the technologist. Radiation Dose : 1. Abdomen/Pelvis: CTDIvol 33.8 mGy, DLP 1677.6 mGy*cm. Findings: Lung Bases: There are small bilateral pleural effusions. Trace bilateral lower lobe atelectasis. Visualized portions of the heart and pericardium are unremarkable. Liver: The liver is normal in size. No focal lesions. Gallbladder and Biliary Tree: The gallbladder is unremarkable. No intrahepatic or extrahepatic biliary ductal dilatation. Spleen: Unremarkable Pancreas: The pancreas enhances normally and there are no focal lesions. The main pancreatic duct is not dilated Adrenal Glands: Unremarkable Kidneys: Kidneys enhance symmetrically. No calculi or hydronephrosis. GI tract: The stomach is grossly normal in appearance.. No evidence of small bowel wall thickening or abnormal dilatation to suggest bowel obstruction. The colon is unremarkable. The appendix is not visualized, however no inflammatory changes in the right lower quadrant to suggest acute appendicitis. Peritoneum/mesentery/retroperitoneum. There is pneumoperitoneum. Trace abdominopelvic free fluid. No evidence of suspicious lymphadenopathy. Abdominal Wall: There is subcutaneous emphysema in the ventral abdominal wall. Soft tissue stranding and gas at the level of the umbilicus and in the abdominal fascia likely related to the previous surgery. No fluid collection. Vasculature: Abdominal aorta and main branches are unremarkable. Normal vascular enhancement. Urinary Bladder: Grossly unremarkable for degree of distention. Pelvic Organs: Unremarkable Musculoskeletal: No aggressive focal bony lesions, acute fractures or dislocation. IMPRESSION: 1. Pneumoperitoneum and subcutaneous emphysema in the ventral abdominal wall likely related to the recent surgery. No intra-abdominal fluid collection. 2. Postsurgical changes in the ventral abdominal wall from prior hernia repair. No fluid collection. 3. Small bilateral pleural effusions and trace bilateral lower lobe atelectasis.
[2025-03-27 06:35] VITALS: BP 105/69; PULSE 73; RESP 15; O2SAT 97
[2025-03-27] MEDS ORDERED: iohexol 300mg/ml 100ml inj. ONE (08:00)
== END 2025-03-27 06:37 | disposition home or self-care (01) ==
LOC: ER 02:16
DX: T65.891A Toxic effect of other specified substances, accidental (unintentional), initial encounter (principal); F41.9 Anxiety disorder, unspecified; F32.A Depression, unspecified; Z91.040 Latex allergy status; Z90.49 Acquired absence of other specified parts of digestive tract; Z88.5 Allergy status to narcotic agent; G89.29 Other chronic pain; Z79.899 Other long term (current) drug therapy; Z98.890 Other specified postprocedural states; Y92.89 Other specified places as the place of occurrence of the external cause
CPT/HCPCS: 36415; 74177; 80053; 81001; 81025; 83605; 83690; 84145; 85025; 96365; 96366; 96375; 99285; J0131; J2270; J2405; Q9967